=== PATIENT | male | born 2000 | race Caucasian/White ===

== ENCOUNTER 2021-07-04 01:14 | Emergency (ER) | payer OTHER, SELFPAY ==
[2021-07-04 01:15] VITALS: BP 199/121; PULSE 99; RESP 16; TEMP 36.7; O2SAT 100; BMI 34.1
--- NOTE | 2021-07-04 01:23 | CT_ITS ---
STUDY: CT ABDOMEN AND PELVIS WITH CONTRAST REASON FOR EXAM: Male, 21 years old. Left upper quadrant pain. RADIATION DOSAGE (If Supplied By Facility): CTDIvol = ( 15.97 ) mGy, DLP = ( 1170.00 ) mGycm TECHNIQUE: Transaxial images were obtained from the dome of the diaphragm to the symphysis pubis without oral contrast. 100 mL Isovue 370 intravenous contrast was administered. Sagittal and coronal images were reconstructed. Individualized dose optimization techniques were used for this CT. COMPARISON: None. FINDINGS: The visualized lung bases are unremarkable. The visualized portions of the heart are within normal limits. Normal liver. Normal gallbladder and extrahepatic biliary system. The spleen is at the upper limits of normal in size. Normal pancreas. Normal bilateral adrenal glands. Normal right kidney. Normal left kidney. Normal visualized stomach. Normal small intestine. Normal colon. The appendix is visualized and appears normal. Normal abdominal aorta. Normal inferior vena cava. Normal retroperitoneum. No intra-abdominal free air. Normal urinary bladder. Normal visualized prostate gland. Normal abdominal wall. Normal osseous structures. CT/Abdomen/Pelvis W IV Cont ONLY IMPRESSION: Normal enhanced CT of the abdomen and pelvis. Spleen at the upper limits of normal in size. Electronically Signed: David Turner MD at 2:44 EST , Service support ,
--- NOTE | 2021-07-04 01:24 | EDS_ITS ---
HPI HPI - GI History of Present Illness Chief Complaint: Abd Pain Abdominal Pain/Flank Pain Onset: Days (1) Context: Gradual Onset Timing: Continuous Quality: Aching Location: LUQ (radiates into left shoulder when takes deep breath) Current Severity: Moderate Maximum Severity: Moderate Worsened by: - (deep inspiration) Nausea/Vomiting/Emesis GI Symptom: Negative for Nausea and Vomiting Diarrhea/Melena/Hematochezia GI Symptom: Positive for - (Last bowel movement this morning, normal); Negative for Diarrhea, Melena and Hematochezia Associated Symptoms Associated Symptoms: Negative for Dysuria, Frequency, Hematuria and Urgency Narrative Narrative: Patient states he woke up with severe left upper quadrant pain, it was coming on gradually over the past day, he became concerned because the last time he had pain in this area he had imaging that showed an enlarged spleen, which was back in January. He was then tested for mononucleosis and this confirmed that he had a prior infection which he knew about in high school, but no acute infection at that time. He had a subsequent ultrasound a couple months later in March that showed that his spleen had gotten a little smaller. He is scheduled for another ultrasound coming up soon. States he tried sucralfate and Gaviscon today with this discomfort, it did not change anything. He was told that he may have some gastritis when he had this pain once earlier than this past year, however he had a subsequent EGD that was negative. He denies any coughing, chest pain, shortness of breath, diaphoresis, fevers or chills, or nausea, vomiting, diarrhea. He states he did feel like there was a sore lymph node under his chin today Prior similar symptoms: Yes (But not this bad and not worse with deep inspiration in the past) Recent Illness/Hospitalization: No PFSH PFSH Medical History no medical history no medical history Home Medications Al hyd-Mg tr-alg ac-sod bicarb [Gaviscon] tab PO 07/04/21 [History Last Taken Unknown] esomeprazole magnesium [Nexium] 20 mg PO DAILY 07/04/21 [History Last Taken Unknown] sucralfate [Carafate] 1 g PO BID 07/04/21 [History Last Taken Unknown] Allergy/AdvReac Type Severity Reaction Status Date / Time No Known Allergies Allergy Verified 07/04/21 01:25 Surgical History no surgical history no surgical history Social History Smoking Status: Never smoker ROS ROS ED Constitutional Constitutional ED: Denies chills or fever(s) Eyes Eyes: Denies change in vision or diplopia ENT ENT ED: Denies rhinorrhea or sore throat Cardiovascular Cardiovascular: Denies chest pain or palpitations Respiratory/Chest Respiratory/Chest: Denies cough or dyspnea Gastrointestinal Gastrointestinal: Reports as per HPI and abdominal pain; Denies diarrhea, nausea or vomiting Genitourinary Genitourinary ED: Denies dysuria or hematuria Musculoskeletal Musculoskeletal: Denies back pain or neck pain Integumentary Denies abscess or rash Neurologic Neurologic: Denies headache(s), paresthesias or weakness Psychiatric Psychiatric: Denies anxiety or suicidal thoughts EXAM Physical Exam Const Vital Signs: 07/04/21 01:15 07/04/21 02:33 Temperature 98.0 F Temperature Source Temporal Pulse Rate 99 Respiratory Rate 16 Blood Pressure 199/121 H 161/102 H Blood Pressure Mean 147 121 Pulse Ox 100 Oxygen Delivery Method Room Air Positive well nourished and well developed General Appearance ED: well developed and NAD HEENT Reports moist mucous membranes normocephalic and atraumatic Eyes PERRL and EOMs intact bilaterally Neck full ROM, no lymphadenopathy and supple Resp normal respiratory effort and clear to auscultation bilaterally Cardio regular rate, regular rhythm and no murmurs Rate: Negative for tachycardic GI non-distended GI Narrative: Tender in left upper quadrant but it is just lateral to the epigastrium, with deep palpation in the lateral aspect of the left upper quadrant even with deep inspiration, there is no tenderness. Unable to palpate spleen, however patient's body habitus limits the exam. No splinting on deep inspiration. Auscultation: normoactive bowel sounds Palpation: soft Back/Spine no CVA tenderness General Back: other FROM Extremity normal to inspection General Extremety ED: Negative for edema, pulses abnormal or tenderness General Extremity: Negative for edema or pulses abnormal Neuro oriented x3, CN's II-XII intact bilaterally and no sensory deficits noted Sensorium / Orientation: awake and alert Motor Exam: strength 5/5 throughout Psych mental status grossly normal, thought process normal, cooperative, speech normal and activity/motor behavior normal Mood & Affect: anxious Skin no rashes or lesions noted and no wounds MDM MDM MDM Narrative Medical decision making narrative: Patient presenting in the 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 Blood work was obtained, and he was given an IV to flush the IV contrast for the CT scan. Blood work and CT are normal, with the CT showing the spleen at the upper limits of normal in size. Reassured patient, he is starting to feel better and denies offers for Toradol, dicyclomine. He states he was prescribed dicyclomine for this in the past. Certainly sounds like some type of GI pain to me, could be stomach related, could be splenic flexure of the colon, but Kehr sign is nonspecific and he has a PERC score of 0, ruling out pulmonary embolus for now. States he gets this about 3 times a year. Follow-up advised. Lab Data Attestation: I reviewed the patient's lab results. Labs: Laboratory Results - last 24 hr 07/04/21 07/04/21 01:30 01:30 WBC 7.8 RBC 5.31 Hgb 16.1 Hct 46.4 MCV 87.4 MCH 30.3 MCHC 34.7 RDW Std Deviation 36.8 RDW Coeff of Radha 11.5 L Plt Count 174 MPV 10.0 Immature Gran % (Auto) 1.200 H Neut % (Auto) 46.9 L Lymph % (Auto) 40.5 Rooks % (Auto) 8.3 Eos % (Auto) 2.3 Baso % (Auto) 0.8 Absolute Neuts (auto) 3.7 Absolute Lymphs (auto) 3.16 Nucleated RBC % 0 Sodium 143 Potassium 3.8 Chloride 110 H Carbon Dioxide 27.0 Anion Gap 6 BUN 13 Creatinine 1.13 Estim Creat Clear Calc 102.54 Est GFR (MDRD) Af Amer 104 Est GFR (MDRD) Non-Af 86 BUN/Creatinine Ratio 11.5 Glucose 99 Calcium 9.6 Total Bilirubin 0.40 AST 44 H ALT 60 Alkaline Phosphatase 93 Total Protein 7.7 Albumin 4.1 Globulin 3.6 Albumin/Globulin Ratio 1.1 Lipase 85 Radiography Diagnostic Testing: Clinical Impression(s) from Imaging Studies Abdomen/Pelvis CT 07/04/21 01:23 IMPRESSION: Normal enhanced CT of the abdomen and pelvis. Spleen at the upper limits of normal in size. Electronically Signed: David Turner MD at 2:44 EST , Service support , Discharge Plan Triage Chief Complaint: Abd Pain ED Provider: Harvey Stevenson Dx/Rx/DC Orders Clinical Impression: Abdominal pain, LUQ Instructions: Abdominal Pain Prescriptions: No Action sucralfate [Carafate] 1 gram Tablet 1 g PO BID RF: 0 esomeprazole magnesium [Nexium] 20 mg Capsule,Delayed Release(Dr/Ec) 20 mg PO DAILY RF: 0 Gaviscon 80-14.2 mg Tablet,Chewable PO RF: 0 Primary Care Provider: Vasquez Reyes Referrals: Vasquez Reyes MD [Primary Care Provider] - 5-7 Days Disposition Disposition: Home, Self Care
[2021-07-04] MEDS: 0.9% Normal Saline 1,000 ML 999 ML IV (01:37)
[2021-07-04 01:45] LABS: Absolute Lymphocyte Count 3.16 X10^3/uL (0.83-4.51); Absolute Neutrophil Count 3.7 X10^3/uL (2.0-7.7); Basophil# 0.06 X10^3/uL; Basophil% 0.8 % (0-1); Eosinophil# 0.18 X10^3/uL; Eosinophils% 2.3 % (0-5); Hematocrit 46.4 % (40-54); Hemoglobin 16.1 g/dL (13.0-16.5); Lymphocyte # 3.16 X10^3/ul (0.83-4.51); Lymphocyte % 40.5 % (19-41); Mean Corp Hgb Conc 34.7 g/dL (32-36); Mean Corpuscular Hgb 30.3 pg (27.0-32.0); Mean Corpuscular Volume 87.4 fL (80-94); Monocyte# 0.65 X10^3/uL; Monocyte% 8.3 % (0-10); NRBC Flagged by Analyzer 0 % (0-5); Neutrophil # 3.66 X10^3/uL (2.7-7.7); Neutrophil % 46.9 % (47-70); Platelet Count 174 K/mm3 (150-450); RBC Distribution Width CV 11.5 % (11.6-14.6); RBC Distribution Width SD 36.8 fl (35.1-43.9); Red Blood Count 5.31 M/mm3 (4.6-6.2); White Blood Count 7.8 K/mm3 (4.4-11.0)
[2021-07-04 02:13] LABS: ALB/GLOB Ratio 1.1 RATIO (0.9-2.4); AST(SGOT) 44 U/L (15-37); Alanine Aminotransfer ALT/SGPT 60 U/L (16-61); Albumin, Serum 4.1 g/dL (3.2-5.0); Alkaline Phosphatase 93 U/L (45-117); Anion Gap 6 (5-15); BUN 13 mg/dL (7-18); BUN/Creat Ratio 11.5 RATIO (10-20); Calcium,Total 9.6 mg/dL (8.5-10.1); Chloride 110 mmol/L (98-107); Creatinine, Serum 1.13 mg/dL (0.70-1.30); EST Glomerular Filtration Rate 86 mL/min (>60); Est Glom Filt Rate - Afr Amer 104 mL/min (>60); Estimated Creatinine Clearance 102.54 ml/min; Globulin 3.6 g/dL (2.2-4.2); Glucose 99 mg/dL (74-106); Lipase 85 U/L (73-393); Potassium 3.8 mmol/L (3.5-5.1); Protein, Total 7.7 g/dL (6.4-8.2); Sodium Level 143 mmol/L (136-145)
[2021-07-04 02:33] VITALS: BP 161/102
[2021-07-04 03:07] VITALS: RESP 16
== END 2021-07-04 03:07 | disposition home or self-care (01) ==
PROVIDERS: Emergency Provider Emergency Medicine; PCP Family Medicine
DX: R10.12 Left upper quadrant pain (principal); Z79.899 Other long term (current) drug therapy
CPT/HCPCS: 74177; 80053; 83690; 85025; 96360; 99283; J7030; Q9967; A4216

== ENCOUNTER 2023-11-18 22:51 | Inpatient (IN) | payer OTHER, SELFPAY ==
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
[2023-11-18 23:03] VITALS: BP 177/94; PULSE 114; RESP 18; TEMP 35.9
--- NOTE | 2023-11-18 23:24 | EX.ED.VIS.PS ---
HPI HPI - Psych History of Present Illness Chief Complaint: Suicidal Informant: patient Limited: intoxicated and uncooperative Onset/Context/Timing Onset: Today Timing: Continuous Associated Symptoms Associated Symptoms - Psych: Positive for Depressed and Suicidal Thoughts; Negative for Paranoia, Visual Hallucinations or Auditory Hallucinations Specific plan (suicidal thought): Shooting self with a gun Narrative Narrative: Patient presents with depression and suicidal ideations that occurred tonight. Patient states that he had been drinking. Patient states he does not want to live anymore. Patient states he wants to shoot himself with a gun. Patient denies any visual or auditory hallucinations. Patient denies any paranoid ideations. Patient does not provide any further information and refused to answer any other questions. PFSH [facility] Medical History (Updated 11/19/23 @ 06:[address] Sea Chong, ) Depression Hypertension Home Medications Al hyd-Mg tr-alg ac-sod bicarb 80 mg-14.2 mg chewable tablet (Gaviscon) tab PO 07/04/21 [History Last Taken Unknown] esomeprazole magnesium 20 mg capsule,delayed release (Nexium) 20 mg PO DAILY 07/04/21 [History Last Taken Unknown] sucralfate 1 gram tablet (Carafate) 1 g PO BID 07/04/21 [History Last Taken Unknown] amlodipine 5 mg tablet 5 mg PO DAILY PRN htn 11/19/23 [History Last Taken Unknown] fluoxetine 40 mg capsule 60 mg PO DAILY 11/19/23 [History Last Taken Unknown] Allergy/AdvReac Type Severity Reaction Status Date / Time No Known Allergies Allergy Verified 11/19/23 00:01 Surgical History (Updated 11/19/23 @ 00:36 by Missy Oviedo) Hx of tonsillectomy Social History (System 07/07/21 @ 15:03 by Yue Dumont) Smoking Status: Never smoker ROS ROS ED Review of Systems ROS Unobtainable: other Details: Patient is uncooperative and refuses to answer questions EXAM Physical Exam Const Vital Signs: 11/18/23 23:51 11/18/23 23:03 11/19/23 01:00 Temperature 96.6 F L 96.6 F L Temperature Source Temporal Temporal Pulse Rate 114 H 114 H 105 H Respiratory Rate 18 18 16 Blood Pressure 177/94 H 177/94 H 130/78 H Blood Pressure Mean 121 121 95 Pulse Ox Oxygen Delivery Method Nasal Cannula Oxygen Flow Rate (L/min) 2 11/19/23 02:00 11/19/23 00:55 11/19/23 06:00 Temperature Temperature Source Pulse Rate 119 H 86 Respiratory Rate 159 H Blood Pressure 143/63 H 122/82 H Blood Pressure Mean 89 95 Pulse Ox 93 84 98 Oxygen Delivery Method Nasal Cannula Room Air Room Air Oxygen Flow Rate (L/min) 2 Positive well nourished and well developed General Appearance ED: well developed and NAD HEENT Reports moist mucous membranes Neck supple and no JVD Resp normal respiratory effort and clear to auscultation bilaterally GI non-distended Palpation: soft and tender RUQ; Negative for guarding Extremity normal to inspection General Extremety ED: Negative for edema or tenderness General Extremity: Negative for edema Neuro oriented x3, CN's II-XII intact bilaterally and no sensory deficits noted Marcel Coma Scale: document GCS findings Spontaneous Obeys Commands Oriented 15 Sensorium / Orientation: alert Motor Exam: strength 5/5 throughout Psych Attitude: agitated, aggressive and hostile Mood & Affect: depressed and labile affect Thought Content: suicidality, No homicidality, No delusion(s) and No hallucination(s) MDM MDM MDM Narrative Medical decision making narrative: Medical screening labs will be obtained. CBC will be obtained to assess for leukocytosis and anemia. Basic metabolic profile will be obtained to assess for electrolyte abnormality and renal function. Urine tox screen will be obtained to assess for substance abuse. Serum alcohol level will be obtained to assess for alcohol intoxication. Lab Data Attestation: I reviewed the patient's lab results. Lab results narrative: CBC was reviewed and was within normal limits. Basic metabolic profile was reviewed and was within normal limits. Urine tox screen was reviewed and was negative. Serum alcohol level was reviewed and was elevated at 275. Labs: Laboratory Results - last 24 hr 11/19/23 11/19/23 11/19/23 00:15 00:20 01:23 WBC 8.6 RBC 5.16 Hgb 16.2 Hct 46.3 MCV 89.7 MCH 31.4 MCHC 35.0 RDW Std Deviation 39.0 RDW Coeff of Radha 11.9 Plt Count 234 MPV 9.9 Immature Gran % (Auto) 1.200 H Neut % (Auto) 39.1 L Lymph % (Auto) 49.[address] [place] [place] % (Auto) 6.7 Eos % (Auto) 2.1 Baso % (Auto) 1.5 H Absolute Neuts (auto) 3.4 Absolute Lymphs (auto) 4.23 Nucleated RBC % 0 Sodium 143 Potassium 3.9 Chloride 111 H Carbon Dioxide 21.0 Anion Gap 11 BUN 12 Creatinine 1.02 Estim Creat Clear Calc 138.40 Est GFR (MDRD) Af Amer 115 Est GFR (MDRD) Non-Af 95 BUN/Creatinine Ratio 11.8 Glucose 110 H Calcium 8.7 Urine Opiates Screen NEGATIVE Urine Methadone Screen NEGATIVE Ur Barbiturates Screen NEGATIVE Ur Phencyclidine Scrn NEGATIVE Ur Amphetamines Screen NEGATIVE MDMA (Ecstasy) Screen NEGATIVE U Benzodiazepines Scrn NEGATIVE Urine Cocaine Screen NEGATIVE U Cannabinoids Screen NEGATIVE Ur Drug Screen Comment Ethyl Alcohol Cancelled 275.0 Treatment and Re-Evaluation Narrative: Patient was given a dose of Ativan here. Suicide precautions were maintained. Patient was placed in restraints initially. Patient became more cooperative and restraints were able to be discontinued. Alcohol level will need to be repeated prior to crisis evaluation. Care of the patient will be turned over the oncoming physician pending repeat alcohol level and crisis evaluation. Discharge Plan Triage Chief Complaint: Suicidal ED Provider: Sea Chong Dx/Rx/DC Orders Clinical Impression: Suicidal ideation, Alcohol intoxication, Depression Prescriptions: No Action sucralfate [Carafate] 1 gram Tablet 1 g PO BID esomeprazole magnesium [Nexium] 20 mg Capsule,Delayed Release(Dr/Ec) 20 mg PO DAILY Gaviscon 80-14.2 mg Tablet,Chewable PO amlodipine 5 mg tablet 5 mg PO DAILY PRN (Reason: htn) fluoxetine 40 mg capsule 60 mg PO DAILY Primary Care Provider: Vasquez Reyes Referrals: Vasquez Reyes MD [Primary Care Provider] -
[2023-11-18] MEDS: LORazepam 2 MG/ML Syringe IM (23:31)
[2023-11-18 23:51] VITALS: BP 177/94; PULSE 114; RESP 18; TEMP 35.9; BMI 36.8
--- NOTE | 2023-11-18 23:53 | ED.RN ---
This RN attempted to obtain vital signs from pt. Pt refusing to relax his arm to allow for bp to be obtained. This RN attempted to place temporary pulse oximeter on pt to obtain HR and O2. Pt threw pulse oximeter. Sticker pulse oximeter attempted to be placed on finger, ear and toe without success, pt began spitting at this RN and an officer in the room. Attempts for vital signs abandoned at this time.
[2023-11-19] VITALS (9 sets, daily range): BP systolic 122–158; BP diastolic 63–103; PULSE 76–119; RESP 16–159; TEMP 36.4–37.2; O2SAT 84–99; BMI 36.8
[2023-11-19 00:43] LABS: Amphetamine Urine VISTA NEGATIVE (<1000 ng/mL); Barbiturate Urine VISTA NEGATIVE (< 200 ng/mL); Benzodiazepine Urine VISTA NEGATIVE (< 200 ng/mL); Cocaine Urine VISTA NEGATIVE (< 300 ng/mL); Ecstacy Urine VISTA NEGATIVE (< 500 ng/mL); Methadone Urine VISTA NEGATIVE (< 300 ng/mL); PCP Urine VISTA NEGATIVE (< 25 ng/mL); THC Urine VISTA NEGATIVE (< 50 ng/mL); Vista UDS pH Range 5
[2023-11-19 00:50] LABS: Absolute Lymphocyte Count 4.23 X10^3/uL (0.83-4.51); Absolute Neutrophil Count 3.4 X10^3/uL (2.0-7.7); Basophil# 0.13 X10^3/uL; Basophil% 1.5 % (0-1); Eosinophil# 0.18 X10^3/uL; Eosinophils% 2.1 % (0-5); Hematocrit 46.3 % (40-54); Hemoglobin 16.2 g/dL (13.0-16.5); Lymphocyte # 4.23 X10^3/ul (0.83-4.51); Lymphocyte % 49.4 % (19-41); Mean Corpuscular Hgb 31.4 pg (27.0-32.0); Mean Corpuscular Volume 89.7 fL (80-94); Mean Platelet Vol. 9.9 fl (6.2-12.0); Monocyte# 0.57 X10^3/uL; Monocyte% 6.7 % (0-10); NRBC Flagged by Analyzer 0 % (0-5); Neutrophil # 3.35 X10^3/uL (2.7-7.7); Neutrophil % 39.1 % (47-70); Platelet Count 234 K/mm3 (150-450); RBC Distribution Width CV 11.9 % (11.6-14.6); Red Blood Count 5.16 M/mm3 (4.6-6.2); White Blood Count 8.6 K/mm3 (4.4-11.0)
[2023-11-19 01:03] LABS: Anion Gap 11 (5-15); BUN 12 mg/dL (7-18); BUN/Creat Ratio 11.8 RATIO (10-20); Calcium,Total 8.7 mg/dL (8.5-10.1); Chloride 111 mmol/L (98-107); Creatinine, Serum 1.02 mg/dL (0.70-1.30); EST Glomerular Filtration Rate 95 mL/min (>60); Est Glom Filt Rate - Afr Amer 115 mL/min (>60); Glucose 110 mg/dL (74-106); Potassium 3.9 mmol/L (3.5-5.1); Sodium Level 143 mmol/L (136-145)
--- NOTE | 2023-11-19 01:47 | ED.RN ---
Patient in triage trying to leave. Multiple attempts to de-escalate. Pt swinging at staff. Pt was able to be directed to room, but then would try to run. When arrived to room, PD present, patient swinging and kicking at staff. Pt spit on nurse and PD officer.
[2023-11-19] MEDS: Amox/Clavulanate 875 MG Tablet PO ×2 (09:14→22:25)
--- NOTE | 2023-11-19 13:35 | PCM.HP.STD ---
HPI - General General Date of Admission: 11/19/23 Date of Service: 11/19/23 Chief Complaint: EtOH detoxification. 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 Patient initially was reportedly not willing to answer any questions and initial lab workup notable for elevated alcohol level otherwise not marked appearing. Patient remained in the ED on suicide precautions with initially restraints placed secondary to severe agitation however these were eventually removed. Alcohol repeat level was obtained and noted to be 81. Workup in the ED included T96.6, heart rate 114, BP 177/94, respiratory rate 18 initially 84% on room air however this was upon initial presentation on 11/18/2023 with most recent vital sign reassessment heart rate 96, BP 139/66, respiratory rate 16, 99% on room air, CBC with WBC 8.6, human 16.2, platelet 234 with increased immature granulocytes, BMP with chloride 111, glucose 110 otherwise unremarkable, UDS negative, alcohol initial upon presentation to 75 with repeat 11/19/2023 at 10:29 AM alcohol 81. 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 When patient clinically became non-intoxicated he did report to social work/crisis that he was nonsuicidal and this had been purely his intoxication. was present for these discussions and noted to her concerns given his profession and evident anxiety depression when she does admit that he may truly have these underlying suicidal ideations. Discussed these very honestly with the patient and his and he is amenable to her removing guns from their home to be cautious. Patient does report eagerness to have assistance with alcohol abuse. He denies any current alcohol withdrawal. Patient does report he was recently diagnosed with a sinus infection and has been on Augmentin. Patient did report he did utilize his hand and punched a wall the day prior when he was intoxicated. He notes still being able move his hand but does have some swelling and some bruising to the dorsal region. In the ED patient administered ativan 2 mg IM x 1 as well as Augmentin 875 mg p.o. x 1. [facility] Medical History Alcohol abuse Anxiety and depression Chewing tobacco use GERD (gastroesophageal reflux disease) Hypertension Obesity OCD (obsessive compulsive disorder) Home Medications amlodipine 5 mg tablet 5 mg PO DAILY PRN htn 11/19/23 [History Last Taken 11/13/23] fluoxetine 40 mg capsule 60 mg PO DAILY 11/19/23 [History Last Taken 11/18/23] Allergy/AdvReac Type Severity Reaction Status Date / Time No Known Allergies Allergy Verified 11/19/23 00:01 Family History Father Diabetes CAD (coronary artery disease) Hypertension Heart disease Father No problems noted. Mother Afib Hypothyroid Surgical History Hx of tonsillectomy Social History (Updated 11/19/23 @ 20:[address] Tenisha Swift MD) adopted: No household members: spouse and children housing: house number of children: 2 current occupational status: employed current occupation: Nurse current occupational exposures/hazards: No pets and animals: No history of recent travel: No Smoking Status: Never smoker Smokeless tobacco user: chewing tobacco alcohol intake: current alcohol intake frequency: 3 or more drinks per day details: Binge EtOH abuse, 15 beer/hard seltzer drinks typically in 1 setting. substance use type: does not use ROS ROS Narrative Admission Review of Systems: CONSTITUTIONAL: No weight loss, fever, chills, + weakness or fatigue. HEENT: + Recent sinus infection with congestion, rhinorrhea, sore throat, postnasal drip with cough. Eyes: No visual loss, blurred vision, double vision or yellow sclerae. Ears, Nose, Throat: No hearing loss, sneezing. SKIN: No rash or itching, lesions, wounds except + occasional very staged ecchymoses. CARDIOVASCULAR: No chest pain, chest pressure or chest discomfort, palpitations, edema, orthopnea, syncopal events. RESPIRATORY: + Postnasal drip associated cough with productive sputum occasionally. No shortness of breath, wheezing, hemoptysis. GASTROINTESTINAL: No anorexia, nausea, vomiting or diarrhea, abdominal pain, melena, BRBPR. GENITOURINARY: No dysuria, frequency, urgency or retention. NEUROLOGICAL: No headache, dizziness, syncope, paralysis, ataxia, numbness or tingling in the extremities, focal weakness, change in bowel or bladder control, seizure. MUSCULOSKELETAL: + muscle, back pain, joint pain or stiffness. HEMATOLOGIC: No anemia, bleeding or bruising. LYMPHATICS: No enlarged nodes. No history of splenectomy. PSYCHIATRIC: + History of anxiety and depression, OCD, suicidal ideation. ENDOCRINOLOGIC: No reports of sweating, cold or heat intolerance. No polyuria or polydipsia. ALLERGIES: No history of asthma, hives, eczema or rhinitis. Vital Signs Vital Signs Vital Signs: 11/18/23 23:51 11/18/23 23:03 11/19/23 01:00 Temperature 96.6 F L 96.6 F L Temperature Source Temporal Temporal Pulse Rate 114 H 114 H 105 H Respiratory Rate 18 18 16 Blood Pressure 177/94 H 177/94 H 130/78 H Blood Pressure Mean 121 121 95 Pulse Ox Oxygen Delivery Method Nasal Cannula Oxygen Flow Rate (L/min) 2 11/19/23 02:00 11/19/23 00:55 11/19/23 06:00 Temperature Temperature Source Pulse Rate 119 H 86 Respiratory Rate 159 H Blood Pressure 143/63 H 122/82 H Blood Pressure Mean 89 95 Pulse Ox 93 84 98 Oxygen Delivery Method Nasal Cannula Room Air Room Air Oxygen Flow Rate (L/min) 2 11/19/23 10:00 Temperature Temperature Source Pulse Rate 96 Respiratory Rate 16 Blood Pressure 139/66 H Blood Pressure Mean 90 Pulse Ox 99 Oxygen Delivery Method Room Air Oxygen Flow Rate (L/min) Weight Weight: 249 lb 1.957 oz Body Mass Index (BMI) 36.8 Physical Exam Narrative Physical Examination: General: Awake, alert, oriented x 3, appropriate, interactive, lengthy discussion about anxiety depression and suicidal ideation as well as alcohol abuse, does have guns in the home and following discussions these will be removed to an alternate location to which she will not have any access, he denies any alcohol withdrawal symptoms currently. Skin: Normal color, normal turgor, no icterus, no cyanosis except occasional staged ecchymoses, including to the right hand which he punched a wall the day prior. HEENT: AT/NC, EOMI, PERRLA, dry MM, no carotid bruits or JVD noted. Lungs: CTA bilaterally, moderate effort, mild decrease BL bases, no rales, ronchi or wheezing. Heart: Mildly tachycardic with regular rhythm; no gallop, rub audible. Abdomen: Soft, obese, NTTP, ND, hyperactive BS, no appreciated HSM. Extremities: No cyanosis, no clubbing, right hand mild edema, see skin. Neurological: Patient awake, alert, oriented as noted, cognitive function intact; pupils equally reactive to light and accommodation, cranial nerves grossly normal, moving all 4 extremities, no focal deficits, strength mildly globally creased. Psychiatric: Affect appears mildly flat, does appear somewhat tearful during discussions but no overt tears, admits to underlying anxiety and depression, admits to the recent suicidal comments which she then denied once he was less intoxicated but following lengthy discussions do have concerns still but currently while being treated for alcohol withdrawal contracts for safety. Results Lab / Micro Data 11/19/23 00:20 11/19/23 00:20 Labs: Laboratory Results - last 24 hr 11/19/23 00:15: Urine Opiates Screen NEGATIVE, Urine Methadone Screen NEGATIVE, Ur Barbiturates Screen NEGATIVE, Ur Phencyclidine Scrn NEGATIVE, Ur Amphetamines Screen NEGATIVE, MDMA (Ecstasy) Screen NEGATIVE, U Benzodiazepines Scrn NEGATIVE, Urine Cocaine Screen NEGATIVE, U Cannabinoids Screen NEGATIVE, Ur Drug Screen Comment 11/19/23 00:20: WBC 8.6, RBC 5.16, Hgb 16.2, Hct 46.3, MCV 89.7, MCH 31.4, MCHC 35.0, RDW Std Deviation 39.0, RDW Coeff of Radha 11.9, Plt Count 234, MPV 9.9, Immature Gran % (Auto) 1.200 H, Neut % (Auto) 39.1 L, Lymph % (Auto) 49.4 H, Obion % (Auto) 6.7, Eos % (Auto) 2.1, Baso % (Auto) 1.5 H, Absolute Neuts (auto) 3.4, Absolute Lymphs (auto) 4.23, Nucleated RBC % 0, Sodium 143, Potassium 3.9, Chloride 111 H, Carbon Dioxide 21.0, Anion Gap 11, BUN 12, Creatinine 1.02, Estim Creat Clear Calc 138.40, Est GFR (MDRD) Af Amer 115, Est GFR (MDRD) Non-Af 95, BUN/Creatinine Ratio 11.8, Glucose 110 H, Calcium 8.7, Ethyl Alcohol Cancelled 11/19/23 01:23: Ethyl Alcohol 275.0 11/19/23 10:29: Ethyl Alcohol 81.0 Assessment & Plan Assessment/Plan (1) Alcohol intoxication: PLAN: Plan 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 #1. Acute Abuse with Impending EtOH Withdrawal: Will admit to MS, will initiate and continue on protocol with taper course of Phenobarbital, as needed gabapentin, Catapres, Bentyl, Vistaril, IV fluids, IV antiemetics, Tylenol as needed for pain. Will consult Case management for assistance for transition to next level of rehabilitation care. Mag, phos pending. Maintain on CIWA protocol concurrently. Will obtain plain film of the R hand given possibly injury while intoxicated. #2. Anxiety and depression with suicidal ideations: Given severity of presentation with significant plan and known history of anxiety and depression will maintain noted to patient and significant concerns with recommendation for aggressive outpatient counseling/therapy and ongoing medication treatment with consideration of adjunctive therapy. Patient was evaluated by crisis and social work and felt appropriate to be off suicide precautions. Will remain off precautions per discussion with patient and with contracted safety but did discuss and he is amenable as well as to remove guns from their home. Will continue social work/case management consultation given these concerns. #3. Recent acute sinusitis: Will continue patient oral Augmentin regimen, PRN ocean spray, PRN cough regimen, encourage nasal irrigation with January pot system at home and potentially Flonase if necessary. #4. Hypertension: Continue home regimen including amlodipine, PRN hydralazine. #5. Obesity: Weight loss and lifestyle changes encouraged. #6. GERD: Will continue patient on PPI. #7. Chew tobacco use: Uses pouches or chew, encourage cessation, nicotine replacement if requested. #8. DVT prophylaxis: Low risk. Charges/Coding Visit Charges Inpatient E&M: 94852 Init Hosp L2
--- NOTE | 2023-11-19 14:42 | RAD_ITS ---
STUDY: X-RAY - RIGHT HAND REASON FOR EXAM: Male, 23 years old. Trauma TECHNIQUE: 3 view(s) of the hand. COMPARISON: None. FINDINGS: There is no evidence of fracture or dislocation. There are no significant degenerative changes. There are no radiodense foreign bodies. RAD/Hand Min 3 Views IMPRESSION: No fracture or dislocation. Electronically Signed: London Roe MD at 15:12 EDT ,
[2023-11-19 15:10] LABS: AST(SGOT) 57 U/L (15-37); Alanine Aminotransfer ALT/SGPT 75 U/L (16-61); Albumin, Serum 4.2 g/dL (3.2-5.0); Alkaline Phosphatase 100 U/L (45-117); Bilirubin, Direct 0.11 mg/dL (0.00-0.30); Globulin 3.6 g/dL (2.2-4.2); Magnesium 2.2 mg/dL (1.6-2.6); Phosphorus 2.7 mg/dL (2.5-4.9); Protein, Total 7.8 g/dL (6.4-8.2)
[2023-11-19] MEDS: amLODIPine 5 MG Tablet PO (18:53)
[2023-11-19] MEDS: Lactated Ringers 1,000 ML 125 ML IV (18:53)
[2023-11-19] MEDS: Phenobarbital 32.4 MG Tablet 64.8 MG PO ×2 (18:53→22:24)
[2023-11-19] MEDS: Gabapentin 300 MG Capsule PO (21:27)
[2023-11-19] MEDS: Ibuprofen 600 MG Tablet PO (22:29)
[2023-11-20 03:00] VITALS: BP 135/85; PULSE 83; RESP 16; TEMP 36.6; O2SAT 99
[2023-11-20] MEDS: Phenobarbital 32.4 MG Tablet 64.8 MG PO ×6 (03:00→22:32)
[2023-11-20 08:34] VITALS: BP 130/81; PULSE 71; RESP 18; TEMP 36.6; O2SAT 99
[2023-11-20] MEDS: Thiamine Hydrochloride 100 MG Tablet PO (08:37)
[2023-11-20] MEDS: Multivitamins,Ther W-Minerals Tablet 1 TABLET PO (08:37)
[2023-11-20] MEDS: Folic Acid 1 MG Tablet PO (08:37)
[2023-11-20] MEDS: Amox/Clavulanate 875 MG Tablet PO ×2 (11:09→22:32)
[2023-11-20 11:10] VITALS: O2SAT 98
[2023-11-20] MEDS: amLODIPine 5 MG Tablet PO (11:10)
[2023-11-20] MEDS: FLUoxetine 20 MG Capsule 60 MG PO (11:10)
[2023-11-20] MEDS: Pantoprazole Sodium 20 MG Tablet PO (11:10)
--- NOTE | 2023-11-20 11:22 | NURSING ---
talked with unit manager rn as pt states concerned that while he was in ER, his behavior has given him charges pressed against. she will reach out to manager unit.
[2023-11-20] MEDS: Dicyclomine 10 MG Capsule 20 MG PO ×2 (11:30→22:32)
--- NOTE | 2023-11-20 11:31 | ADDICTION ---
This feature writer met with PT to conduct ASAM, MSE, AUDIT assessments and to plan for d/c. PT A+Ox4 and participated actively. All assessments completed. PT plans to f/u with outpatient AOD treatment. TW completed Vivitrol Assessment. He meets criteria and would like the shot. Pt reports that he will follow up with [facility] for tx and the ongoing shot. He reports that he does not need transportation post d/c from [facility].
[2023-11-20] MEDS: Ibuprofen 600 MG Tablet PO ×2 (14:21→22:31)
[2023-11-20 14:23] VITALS: BP 153/89; PULSE 83; RESP 18; TEMP 36.8; O2SAT 98
[2023-11-20] MEDS: Gabapentin 300 MG Capsule PO (14:37)
--- NOTE | 2023-11-20 15:37 | CHAPLAIN ---
Type of Pastoral Visit ___ Initial Visit ___ Follow-up Visit ___ On-call Visit ___ General Patient Visit ___ Spiritual Assessment ___ Family Conference ___ Bereavement ___ Rapid Response ___ Code Blue ___ Other (describe below) Pastoral Care Referral From ___ Patient ___ Family ___ Nurse ___ Physician ___ Assistant Sales Manager ___ Blunger ___ Other (describe below) Sacrament/Intervention ___ Active listening ___ Anointing ___ Scientology ___ Bereavement ___ Communion ___ [place] exploration ___ ___ Life review ___ Prayer ___ Reconciliation ___ Sacrament of Sick ___ Supportive presence ___ Wedding ___ Other (describe below) Pastoral Comments two attempts made to visit but patient has staff members attending to his needs at the time
--- NOTE | 2023-11-20 19:28 | PCM.PN.HOSP ---
Reason for Visit Reason for Visit: Diagnoses Alcohol use, unspecified with intoxication, unspecified (11/19/23) Subjective Subjective Patient was seen and examined today, he has some vague mid abdominal pain, his liver enzymes were slightly elevated when he was admitted. Patient has no complaints of any tremor or nervousness at this time, patient feels that he will most likely do an outpatient detox program when he is discharged from the hospital. Objective Data Objective Data Vital Signs: Vital Signs Temp Pulse Resp BP Pulse Ox O2 Del Method O2 Flow Rate 98.3 F 83 18 153/89 H 98 Room Air 2 11/20/23 14:23 11/20/23 14:23 11/20/23 14:23 11/20/23 14:23 11/20/23 14:23 11/20/23 14:23 11/19/23 02:00 Oxygen Flow Rate (L/min) 2 Oxygen Delivery Method Room Air Weight: 113 kg Body Mass Index (BMI) 36.8 Intake & Output: Intake and Output for Last 24 Hours 11/18/23 11/19/23 11/20/23 23:59 23:59 23:59 Intake Total 439.58 / 439.58 1860.42 / 1860.42 Balance 439.58 / 439.58 1860.42 / 1860.42 Lab / Micro Data 11/19/23 00:20 11/19/23 00:20 Physical Exam Const alert, oriented x3, no apparent distress and healthy appearing General Appearance: cooperative, well kempt and well developed Orientation / Consciousness: awake, oriented to person, oriented to place and oriented to time HEENT normocephalic, head/scalp atraumatic and moist oral mucous membranes Eyes PERRL, EOMs intact bilaterally and conjunctivae normal Neck supple, no JVD, thyroid normal and no carotid bruits General: trachea midline Resp normal respiratory effort and clear to auscultation bilaterally Auscultation: Negative for rales, rhonchi or wheezes Cardio regular rate, regular rhythm, S1 normal heart sound, S2 normal heart sound, no murmurs, no rub and no gallops GI normal to inspection, nondistended, normoactive bowel sounds, soft to palpation, non-tender and non-distended Extremity no clubbing, cyanosis or edema Skin no rashes or lesions noted General Skin Exam: no breakdown Neuro oriented x3, CN's II-XII intact bilaterally, no focal motor deficits and no sensory deficits noted Sensorium / Orientation: awake and alert Speech: speech normal Psych affect normal Assessment & Plan Assessment/Plan (1) Depression: PLAN: Plan 1. Acute alcohol withdrawal-continue medications as ordered for alcohol withdrawal, addiction clinical social work aide will develop a plan for the patient at the time of discharge from the hospital #2 chronic depression-patient is on Prozac #3 elevated liver enzymes-probably mild alcoholic hepatitis, repeat liver panel tomorrow #4 abdominal discomfort-etiology unclear, this will be monitored, I do not feel the patient needs a lipase performed at this time #5 essential hypertension-patient will remain on his present medication Total clinical time spent by myself addressing the patient's medical issues, reviewing all of his data, and collaborating with patient's care team: 35 minutes Charges/Coding Visit Charges Inpatient E&M: 40371 Subs Hosp L2
[2023-11-20 20:51] VITALS: BP 133/86; PULSE 80; RESP 18; TEMP 36.8; O2SAT 98
[2023-11-21 01:58] VITALS: BP 153/72; PULSE 67; RESP 18; TEMP 36.4; O2SAT 98
[2023-11-21] MEDS: Phenobarbital 32.4 MG Tablet 64.8 MG PO ×2 (02:03→06:12)
[2023-11-21 08:00] VITALS: BP 132/70; PULSE 84; RESP 18; TEMP 36.9; O2SAT 98
[2023-11-21 08:32] LABS: AST(SGOT) 68 U/L (15-37); Alanine Aminotransfer ALT/SGPT 84 U/L (16-61); Albumin, Serum 3.6 g/dL (3.2-5.0); Alkaline Phosphatase 93 U/L (45-117); Bilirubin, Direct 0.15 mg/dL (0.00-0.30); Protein, Total 6.6 g/dL (6.4-8.2)
[2023-11-21] MEDS: Thiamine Hydrochloride 100 MG Tablet PO (08:36)
[2023-11-21] MEDS: Folic Acid 1 MG Tablet PO (08:36)
[2023-11-21] MEDS: Pantoprazole Sodium 20 MG Tablet PO (08:36)
[2023-11-21] MEDS: Amox/Clavulanate 875 MG Tablet PO (08:36)
[2023-11-21] MEDS: FLUoxetine 20 MG Capsule 60 MG PO (08:36)
[2023-11-21] MEDS: amLODIPine 5 MG Tablet PO (08:37)
[2023-11-21] MEDS: Multivitamins,Ther W-Minerals Tablet 1 TABLET PO (08:37)
--- NOTE | 2023-11-21 13:27 | CHAPLAIN ---
Type of Pastoral Visit _x__ Initial Visit ___ Follow-up Visit ___ On-call Visit ___ General Patient Visit ___ Spiritual Assessment ___ Family Conference ___ Bereavement ___ Rapid Response ___ Code Blue ___ Other (describe below) Pastoral Care Referral From _x__ Patient ___ Family ___ Nurse ___ Physician ___ Tree Driller ___ Facilities Engineer ___ Other (describe below) Sacrament/Intervention _x__ Active listening ___ Anointing ___ Alevism ___ Bereavement ___ Communion _x__ [place] exploration ___ _x__ Life review _x__ Prayer ___ Reconciliation ___ Sacrament of Sick _x__ Supportive presence ___ Wedding ___ Other (describe below) Pastoral Comments patient is very welcoming and asks if this physical chemistry professor knows his situation; pt admits to embarrassment and shame about his behavior as I am normally a empathic individual and love people; pt is a professional, , 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
--- NOTE | 2023-11-21 14:08 | DCINST_ITS ---
Discharge Instructions Diet Discharge Diet: No restrictions Activity Discharge Activity: Return to Normal Activity Weight Bearing Status: Full weight bearing Follow Up Care Test Results: Test results from this visit will be discussed in further detail at your follow- up appointment, if applicable. Discharge Plan Admission Admit Date/Time: 11/19/23 13:44 Primary Reason for Your Visit: Alcohol withdrawal, alcohol detox Attending Provider: Vasquez Moyer Primary Care Provider: Vasquez Reyes Consulting Providers: Tenisha Swift Instructions Additional Instructions / Restrictions: Finish your outpatient course of antibiotics for sinusitis if you have not f inished them Follow-up with 180 as directed Discharge Orders/Prescriptions Prescriptions: Continued amlodipine 5 mg tablet 5 mg PO DAILY PRN (Reason: htn) Patient Comments: pt takes as needed, should be scheduled. fluoxetine 40 mg capsule 60 mg PO DAILY Referrals / Follow Up: Vasquez Reyes MD [Primary Care Provider] - Disposition Disposition (needs filled in before D/C Order can be placed): Home, Self Care
[2023-11-21] MEDS: Naltrexone Microspheres 380 MG SYRINGE IM (14:12)
[2023-11-21] MEDS: Vivitrol Administration Needles 1 EACH MC (14:13)
[2023-11-21] MEDS: Vivitrol ID Card 1 EACH MC (14:13)
--- NOTE | 2023-11-21 14:13 | PCM.DC.SUM ---
Providers Date of Admission: 11/19/23 Date of Discharge: 11/21/23 Primary Care Physician: Dr. Vasquez Reyes MD Reason For Visit: ETOH WITHDRAWAL Diagnosis Discharge Diagnosis (1) Depression: Status: Acute Code(s): F32.A - Depression, unspecified Plan 1. Acute alcohol withdrawal-continue medications as ordered for alcohol withdrawal, addiction public health social worker will develop a plan for the patient at the time of discharge from the hospital #2 chronic depression-patient is on Prozac #3 elevated liver enzymes-probably mild alcoholic hepatitis, repeat liver panel tomorrow #4 abdominal discomfort-etiology unclear, this will be monitored, I do not feel the patient needs a lipase performed at this time #5 essential hypertension-patient will remain on his present medication Total clinical time spent by myself addressing the patient's medical issues, reviewing all of his data, and collaborating with patient's care team: 35 minutes Medications at Discharge Home Medications amlodipine 5 mg tablet 5 mg PO DAILY PRN htn 11/19/23 fluoxetine 40 mg capsule 60 mg PO DAILY 11/19/23 Hospital Course Operations None Procedures None Summary of Care Provided Minutes Spent on Discharge: 30 Hospital Course: This 23-year-old white male was seen in the emergency room at [facility] requesting detox services from alcohol. Patient was admitted to [place] [address] and medications were started using the alcohol withdrawal template. Patient was seen by addiction public health social worker, arrangements were made for outpatient follow-up for the patient, patient had no severe symptoms of alcohol withdrawal during his hospitalization. On 11/21/2023, patient was seen and examined: On examination he appeared in good health and spirits. Vital signs as documented. Skin warm and dry and without overt rashes. Neck without JVD, neck was supple, trachea midline, thyroid was normal. Lungs clear bilaterally, normal air movement was noted. Heart exam notable for regular rhythm, normal sounds and absence of murmurs, rubs or gallops. Abdomen unremarkable and without evidence of organomegaly, masses, or abdominal aortic enlargement. Bowel sounds are present, abdomen is not distended. Extremities nonedematous, no cyanosis was noted, no clubbing was noted. Neuro: Cranial nerves II through XII are grossly intact, no focal motor deficits were noted, sensation to light touch and pinprick intact, motor exam 5/5 throughout. Psych: Patient is alert and oriented x3, he does not appear anxious or depressed, he does not appear agitated. Patient appears stable for discharge on 11/21/2023. Weight / BMI Weight Weight: 113 kg Body Mass Index (BMI) 36.8 ABG / Lab / Microbiology Data 11/19/23 00:20 11/19/23 00:20 Laboratory: Laboratory Results - last 24 hr 11/21/23 07:22: Total Bilirubin 0.70, Direct Bilirubin 0.15, AST 68 H, ALT 84 H, Alkaline Phosphatase 93, Total Protein 6.6, Albumin 3.6, Globulin 3.0 D/C Instructions Discharge Diet: No restrictions Weight Bearing Status: Full weight bearing Meaningful Use Info Meaningful Use Meaningful Use Diagnoses (Choose all that apply): None applicable Ischemic Stroke Statin Dosing Therapy Reference: STATIN DOSE THERAPY REFERENCE: * Patients > 75 years receive moderate or high dose statin therapy. * Patients 75 years or YOUNGER should receive HIGH intensity statin dose unless contraindicated. You will be required to document reason for non-treatment if statin daily dose does not meet guidelines. HIGH DOSE STATIN THERAPY DAILY Atorvastatin > than or = to 40 mg Rosuvastatin > than or = to 20 mg Amlodipine + Atorvastatin > than or = to 2.5/40 mg Ezetimibe + Simvastatin 10/80 mg Simvastatin 80mg Discharge Plan Admission Admit Date/Time: 11/19/23 13:44 Primary Reason for Your Visit: Alcohol withdrawal, alcohol detox Attending Provider: Vasquez Moyer Primary Care Provider: Vasquez Reyes Consulting Providers: Tenisha Swift Instructions Additional Instructions / Restrictions: Finish your outpatient course of antibiotics for sinusitis if you have not finished them Follow-up with 180 as directed Discharge Orders/Prescriptions Prescriptions: Continued amlodipine 5 mg tablet 5 mg PO DAILY PRN (Reason: htn) Patient Comments: pt takes as needed, should be scheduled. fluoxetine 40 mg capsule 60 mg PO DAILY Referrals / Follow Up: Vasquez Reyes MD [Primary Care Provider] - Disposition Disposition (needs filled in before D/C Order can be placed): Home, Self Care Charges/Coding Visit Charges Inpatient E&M: 64217 Disch Hosp
--- NOTE | 2023-11-21 14:57 | PHA.DC.MR.R ---
Pharmacy [place] Med Reconciliation Pharmacy Service has performed discharge medication reconciliation for this patient. The patient's discharge medication list was reviewed for discrepancies and discrepancies were resolved. Medications at Discharge Home Medications amlodipine 5 mg tablet 5 mg PO DAILY PRN htn 11/19/23 fluoxetine 40 mg capsule 60 mg PO DAILY 11/19/23
== END 2023-11-21 15:25 | disposition home or self-care (01) | DRG 897 ==
LOC: ED 23:45 → MS3 11-19 17:16
PROVIDERS: Admitting Provider Family Medicine; Emergency Provider Emergency Medicine; PCP Family Medicine; Visit Provider Internal Medicine
DX: F10.139 Alcohol abuse with withdrawal, unspecified (principal); E66.9 Obesity, unspecified; K70.10 Alcoholic hepatitis without ascites; F32.A Depression, unspecified; I10 Essential (primary) hypertension; K21.9 Gastro-esophageal reflux disease without esophagitis; F17.220 Nicotine dependence, chewing tobacco, uncomplicated; F10.129 Alcohol abuse with intoxication, unspecified; Y90.8 Blood alcohol level of 240 mg/100 ml or more; R94.5 Abnormal results of liver function studies; Z68.36 Body mass index [BMI] 36.0-36.9, adult; Z79.899 Other long term (current) drug therapy
CPT/HCPCS: 36415; 73130; 80048; 80076; 80307; 80320; 83735; 84100; 85025; 99285; J7120; A4216; G0480

== ENCOUNTER 2024-02-08 10:01 | Emergency (ER) | payer OTHER, SELFPAY ==
[2024-02-08 10:01] VITALS: BP 178/114; PULSE 87; RESP 16; TEMP 36.2; O2SAT 100; BMI 36.1
--- NOTE | 2024-02-08 10:19 | EX.ED.DYSGE1 ---
HPI History of Present Illness Chief Complaint: Abd Pain [facility] Medical History Alcohol abuse Anxiety and depression Chewing tobacco use GERD (gastroesophageal reflux disease) Hypertension Obesity OCD (obsessive compulsive disorder) Home Medications ?Medication ?Instructions ?Recorded ?Last Taken ?Type amlodipine 5 mg tablet 5 mg PO DAILY PRN htn 11/19/23 11/13/23 History fluoxetine 40 mg capsule 60 mg PO DAILY 11/19/23 11/18/23 History omeprazole 20 mg capsule,delayed 20 mg PO DAILY #30 CAPSULES 02/08/24 Unknown Rx release Allergy/AdvReac Type Severity Reaction Status Date / Time No Known Allergies Allergy Verified 02/08/24 10:01 Family History Father Diabetes CAD (coronary artery disease) Hypertension Heart disease Father No problems noted. Mother Afib Hypothyroid Surgical History Hx of tonsillectomy Social History (Updated 11/19/23 @ 20:[address] Tenisha Swift MD) adopted: No household members: spouse and children housing: house number of children: 2 current occupational status: employed current occupation: Nurse current occupational exposures/hazards: No pets and animals: No history of recent travel: No Smoking Status: Current some day smoker tobacco type: cigarettes Smokeless tobacco user: chewing tobacco alcohol intake: current alcohol intake frequency: 3 or more drinks per day details: Binge EtOH abuse, 15 beer/hard seltzer drinks typically in 1 setting. substance use type: does not use EXAM Physical Exam Const Vital Signs: 02/08/24 10:01 Temperature 97.2 F L Temperature Source Temporal Pulse Rate 87 Respiratory Rate 16 Blood Pressure 178/114 H Blood Pressure Mean 135 Pulse Ox 100 Oxygen Delivery Method Room Air MDM MDM MDM Narrative Medical decision making narrative: HISTORY OF PRESENT ILLNESS: 24year old male presents with right upper quadrant abdominal pain. Patient states he had intermittent abdominal pain for last several months. Worse for last 2 weeks. Denies vomiting but notes nausea. Denies fever. Denies history abdominal surgeries. No blood in his stool. No urinary complaints. REVIEW OF SYSTEMS: All other systems reviewed and are negative except as noted in the history of present illness. At least 10 review of systems reviewed and are negative except as noted in history of present illness. PHYSICAL EXAM: Nursing triage notes reviewed, Vital signs reviewed Constitutional: please see [facility] HENT: MMM Eyes: Pupils equal round and reactive to light, Extraocular muscles intact Neck: No stridor, no JVD, full neck ROM Lungs: Clear to auscultation, No wheezing or rales. No increased work of breathing, no conversational dyspnea, no accessory muscle use, no nasal flaring. No respiratory distress noted Heart: Regular rate and rhythm, No murmurs, No rubs and No gallops, 2+ distal pulses (radial, femoral, posterior tibial) in all extremities Abdomen: Soft, negative Pang sign no rigidity, rebound or guarding, no obvious peritoneal signs, no palpable pulsatile abdominal masses, no auscultated abdominal bruit : No CVAT Extremities: No edema Neuro: No focal neurological deficits, cranial nerves II through XII intact, 5/5 strength in all extremities. Intact sensation to light touch in all extremities, 2+ reflexes bilateral patella tendons. Normal gait. No ataxia. Skin: No rash or lesions noted MEDICAL DECISION MAKING: Chief Complaint: abdominal pain External records reviewed: Imaging reviewed: CT scan abdomen pelvis from [address] scan Factors affecting care: Alcohol abuse Social determinants of health: Alcohol abuse History obtained from others: n patient's Consults: none [facility] Narrative: Patient was initially hypertensive with a blood pressure 174 114 otherwise afebrile and nontoxic-appearing. Exam without appreciable tenderness. Negative Pang sign. I considered the following differential diagnosis: AAA, small bowel obstruction, abdominal perforation, appendicitis, pancreatitis, hepatobiliary pathology (acute cholecystitis), mesenteric ischemia, abnormalities such as pyelonephritis, nephrolithiasis I obtained a broad lab and imaging workup to further elucidate etiology of patient complaint. I treat the patient with 50 mg IV Toradol, 4 mg IV Zofran, 1 L normal saline. ALL IMAGES (IF OBTAINED) HAVE BEEN PERSONALLY REVIEWED AND INTERPRETED BY MYSELF. CBC without leukocytosis, severe anemia, no thrombocytopenia. Lipase is wnl indicating no pancreatic inflammation. CMP without evidence of acute kidney injury, significant electrolyte abnormality, anion gap, no evidence hepatobiliary pathology. Right upper quadrant ultrasound shows no evidence of obvious hepatobiliary obstruction. I see nothing that would suggest an acute abdomen at this time. Based on history physical exam, risk factors, my suspicion for bowel obstruction, incarcerated hernia, perforated viscus, acute cholecystitis, appendicitis is very low. There is no evidence of peritonitis sepsis or toxicity at this time. I feel the patient can be managed as an outpatient with follow-up with her/his primary physician and/or psychiatric nursing aide in the next 24 to 48 hours or soon as possible. Instructions have been given for the patient to return to the ED for worsening pain, anorexia, high fevers, intractable vomiting or bleeding. Further instructed patient to follow with his PCP for outpatient blood pressure check to ascertain if he required initiation of blood pressure medicine Patient was given close GI follow-up. The patient and/or family, caregivers express understanding. The patient and/or family, caregivers agrees with the plan. Total critical care time today provided was at least 0 minutes. This excludes separately billable procedures. Critical care time (if documented) is secondary to the patient having high probability of clinically significant/life threatening deterioration in the patient's condition which required my urgent intervention. Shared decision making: I will have a discussion with the patient and or visitors regarding risk/benefits of further testing or admission. They will be made aware of of the risk/benefits inherent in this decision they will be given the opportunity to voice understanding. Impression: 1. Right upper quad abdominal pain 2. Elevated blood pressure 3. Alcohol abuse 4. Alcohol-induced gastritis Disposition: Discharge home Bradley Mars DO This note was generated with [employer] dictation software. It may contain incorrect words, spelling, and punctuation that were not noted in review of the chart prior to signing. Lab Data Labs: Laboratory Results - last 24 hr 02/08/24 11:00 WBC 5.5 RBC 5.07 Hgb 15.5 Hct 44.4 MCV 87.6 MCH 30.6 MCHC 34.9 RDW Std Deviation 36.2 RDW Coeff of Radha 11.5 L Plt Count 208 MPV 10.4 Immature Gran % (Auto) 0.400 Neut % (Auto) 53.3 Lymph % (Auto) 36.9 [place] % (Auto) 7.1 Eos % (Auto) 1.6 Baso % (Auto) 0.7 Absolute Neuts (auto) 3.0 Absolute Lymphs (auto) 2.04 Nucleated RBC % 0 Sodium 139 Potassium 4.2 Chloride 108 H Carbon Dioxide 26.0 Anion Gap 5 BUN 10 Creatinine 1.08 Estim Creat Clear Calc 128.48 Est GFR (MDRD) Af Amer 107 Est GFR (MDRD) Non-Af 89 BUN/Creatinine Ratio 9.3 L Glucose 93 Calcium 9.7 Total Bilirubin 0.70 Direct Bilirubin 0.16 AST 36 ALT 50 Alkaline Phosphatase 100 Total Protein 7.8 Albumin 4.5 Globulin 3.3 Lipase 31 Radiography Diagnostic Testing: Clinical Impression(s) from Imaging Studies Gallbladder Ultrasound 02/08/24 10:48 IMPRESSION: Normal right upper quadrant ultrasound examination. Electronically Signed: Vahid Cherry MD at 11:56 EDT , Discharge Plan Triage Chief Complaint: Abd Pain ED Provider: Bradley Mars Dx/Rx/DC Orders Instructions: ED Gastritis (Adult) Prescriptions: New omeprazole 20 mg capsule,delayed release(DR/EC) 20 mg PO DAILY Qty: 30 0RF No Action amlodipine 5 mg tablet 5 mg PO DAILY PRN (Reason: htn) Patient Comments: pt takes as needed, should be scheduled. fluoxetine 40 mg capsule 60 mg PO DAILY Primary Care Provider: Vasquez Reyes Referrals: Vasquez Reyes MD [Primary Care Provider] - Print Language: Indonesian
--- NOTE | 2024-02-08 10:48 | US_ITS ---
STUDY: ABDOMINAL ULTRASOUND - RIGHT UPPER QUADRANT REASON FOR VISIT: Male, 24 years old right upper quadrant pain. TECHNIQUE: Ultrasound evaluation of the right upper quadrant was performed with real-time and static shane-scale imaging. TECHNICAL QUALITY: Limited. Examination limited by bowel gas. COMPARISON: None. FINDINGS: Liver: The liver measures 17.5 cm. There is normal echogenicity of the liver. The bile ducts are within normal limits. There is hepatic color flow. The direction of portal flow is hepatopetal. There is no demonstrated mass lesion. Gallbladder: Normal distended gallbladder. The gallbladder wall measures 1.4 mm. There is a negative sonographic Pang''s sign. There is no pericholecystic fluid. There are no gallstones. Common Bile Duct (C.B.D.): The common bile duct measures 5 mm. Pancreas: There is nonvisualization of the pancreas due to overlying bowel gas. Right Kidney: Normal size of the right kidney. The right kidney measures 11.1 cm x 5.8 cm x 6.4 cm. Normal renal cortex. The right cortex measures 1.1 cm. There is no demonstrated renal mass or cyst. There is no right hydronephrosis. US/Gallbladder IMPRESSION: Normal right upper quadrant ultrasound examination. Electronically Signed: Vahid Cherry MD at 11:56 EDT ,
[2024-02-08] MEDS: Ondansetron 4 MG/2 ML Vial IV (11:02)
[2024-02-08] MEDS: 0.9% Normal Saline (1000mL) 1,000 ML 999 ML IV (11:02)
[2024-02-08] MEDS: Ketorolac 15 MG/ML Vial IV (11:03)
[2024-02-08 11:23] LABS: AST(SGOT) 36 U/L (15-37); Absolute Lymphocyte Count 2.04 X10^3/uL (0.83-4.51); Alanine Aminotransfer ALT/SGPT 50 U/L (16-61); Albumin, Serum 4.5 g/dL (3.2-5.0); Alkaline Phosphatase 100 U/L (45-117); Anion Gap 5 (5-15); BUN 10 mg/dL (7-18); BUN/Creat Ratio 9.3 RATIO (10-20); Basophil# 0.04 X10^3/uL; Basophil% 0.7 % (0-1); Bilirubin, Direct 0.16 mg/dL (0.00-0.30); Calcium,Total 9.7 mg/dL (8.5-10.1); Chloride 108 mmol/L (98-107); Creatinine, Serum 1.08 mg/dL (0.70-1.30); EST Glomerular Filtration Rate 89 mL/min (>60); Eosinophil# 0.09 X10^3/uL; Eosinophils% 1.6 % (0-5); Est Glom Filt Rate - Afr Amer 107 mL/min (>60); Estimated Creatinine Clearance 128.48 ml/min; Globulin 3.3 g/dL (2.2-4.2); Glucose 93 mg/dL (74-106); Hematocrit 44.4 % (40-54); Hemoglobin 15.5 g/dL (13.0-16.5); Lipase 31 U/L (13-75); Lymphocyte # 2.04 X10^3/ul (0.83-4.51); Lymphocyte % 36.9 % (19-41); Mean Corp Hgb Conc 34.9 g/dL (32-36); Mean Corpuscular Hgb 30.6 pg (27.0-32.0); Mean Corpuscular Volume 87.6 fL (80-94); Mean Platelet Vol. 10.4 fl (6.2-12.0); Monocyte# 0.39 X10^3/uL; Monocyte% 7.1 % (0-10); NRBC Flagged by Analyzer 0 % (0-5); Neutrophil # 2.95 X10^3/uL (2.7-7.7); Neutrophil % 53.3 % (47-70); Platelet Count 208 K/mm3 (150-450); Potassium 4.2 mmol/L (3.5-5.1); Protein, Total 7.8 g/dL (6.4-8.2); RBC Distribution Width CV 11.5 % (11.6-14.6); RBC Distribution Width SD 36.2 fl (35.1-43.9); Red Blood Count 5.07 M/mm3 (4.6-6.2); Sodium Level 139 mmol/L (136-145); White Blood Count 5.5 K/mm3 (4.4-11.0)
[2024-02-08 12:01] VITALS: BP 128/81; PULSE 74; RESP 16; O2SAT 100
[2024-02-08 12:32] VITALS: BP 128/81; PULSE 74; RESP 16; TEMP 36.6; O2SAT 100
== END 2024-02-08 12:40 | disposition home or self-care (01) ==
PROVIDERS: Emergency Provider Emergency Medicine; PCP Family Medicine; Visit Provider Emergency Medicine
DX: R10.11 Right upper quadrant pain (principal); F17.210 Nicotine dependence, cigarettes, uncomplicated; F10.10 Alcohol abuse, uncomplicated; K21.9 Gastro-esophageal reflux disease without esophagitis; I10 Essential (primary) hypertension; Z79.899 Other long term (current) drug therapy; F17.220 Nicotine dependence, chewing tobacco, uncomplicated; K29.20 Alcoholic gastritis without bleeding
CPT/HCPCS: 76705; 80048; 80076; 83690; 85025; 96361; 96374; 96375; 99283; J7030; J2405

== ENCOUNTER → 2024-03-20 | Outpatient (CLI) | payer OTHER, SELFPAY ==
[2024-03-20 10:02] LABS: Absolute Lymphocyte Count 1.82 X10^3/uL (0.83-4.51); Absolute Neutrophil Count 3.1 X10^3/uL (2.0-7.7); Basophil# 0.05 X10^3/uL; Basophil% 0.9 % (0-1); Eosinophil# 0.08 X10^3/uL; Eosinophils% 1.5 % (0-5); Hematocrit 45.8 % (40-54); Hemoglobin 16.1 g/dL (13.0-16.5); Lymphocyte # 1.82 X10^3/ul (0.83-4.51); Lymphocyte % 33.2 % (19-41); Mean Corp Hgb Conc 35.2 g/dL (32-36); Mean Corpuscular Hgb 30.7 pg (27.0-32.0); Mean Corpuscular Volume 87.4 fL (80-94); Mean Platelet Vol. 9.9 fl (6.2-12.0); Monocyte# 0.41 X10^3/uL; Monocyte% 7.5 % (0-10); NRBC Flagged by Analyzer 0 % (0-5); Neutrophil # 3.06 X10^3/uL (2.7-7.7); Neutrophil % 55.8 % (47-70); Platelet Count 220 K/mm3 (150-450); RBC Distribution Width CV 11.9 % (11.6-14.6); RBC Distribution Width SD 38.1 fl (35.1-43.9); Red Blood Count 5.24 M/mm3 (4.6-6.2); White Blood Count 5.5 K/mm3 (4.4-11.0)
[2024-03-20 10:22] LABS: Erythrocyte Sedimentation Rate 3 mm/hr (0-20)
[2024-03-20 10:59] LABS: ALB/GLOB Ratio 1.3 RATIO (0.9-2.4); AST(SGOT) 34 U/L (15-37); Alanine Aminotransfer ALT/SGPT 51 U/L (16-61); Albumin, Serum 4.3 g/dL (3.2-5.0); Alkaline Phosphatase 98 U/L (45-117); Anion Gap 8 (5-15); BUN 13 mg/dL (7-18); BUN/Creat Ratio 11.4 RATIO (10-20); CRP < 2.90 mg/L (0.0-3.0); Calcium,Total 9.5 mg/dL (8.5-10.1); Chloride 108 mmol/L (98-107); Creatinine, Serum 1.14 mg/dL (0.70-1.30); EST Glomerular Filtration Rate 83 mL/min (>60); Est Glom Filt Rate - Afr Amer 101 mL/min (>60); Ferritin 224 ng/mL (26-388); Globulin 3.4 g/dL (2.2-4.2); Glucose 101 mg/dL (74-106); Potassium 4.2 mmol/L (3.5-5.1); Protein, Total 7.7 g/dL (6.4-8.2); Sodium Level 139 mmol/L (136-145)
[2024-03-24 09:34] LABS: Anti-Centromere B Ab <0.2 AI (0.0-0.9); Anti-Chromatin <0.2 AI (0.0-0.9); Anti-Jo <0.2 AI (0.0-0.9); Anti-Mitochondrial AB <20.0 Units (0.0-20.0); Anti-Scleroderma-70 AB <0.2 AI (0.0-0.9); Anti-dsDNA Ab 1 IU/mL (0-9); Beef <0.10 kU/L (Class 0); Chocolate <0.10 kU/L (Class 0); Codfish <0.10 kU/L (Class 0); Corn 0.61 kU/L (Class II); Egg, Whole <0.10 kU/L (Class 0); Milk (Cow) <0.10 kU/L (Class 0); Mussels <0.10 kU/L (Class 0); Peanut 1.06 kU/L (Class II); Pork <0.10 kU/L (Class 0); RNP Ab <0.2 AI (0.0-0.9); SJOGREN'S Anti-SS-A test < 0.2 AI (0.0-0.9); SJOGREN'S Anti-SS-B test < 0.2 AI (0.0-0.9); Salmon <0.10 kU/L (Class 0); Shrimp 2.34 kU/L (Class III); Smith Ab <0.2 AI (0.0-0.9); Soybean 0.63 kU/L (Class II); Tuna <0.10 kU/L (Class 0); Wheat 1.02 kU/L (Class II)
[2024-03-25 11:09] LABS: ACCA 25 units (0-90); ALCA 11 units (0-60); AMCA 29 units (0-100); Angiotensin Convert Enzyme 63 U/L (14-82); Anti-Smooth Muscle ABS 5 Units (0-19); Cytoplasmic Ab (C-ANCA) <1:20 titer (Neg:<1:20); Endomysial Antibody IgA Negative (Negative); Gastrin, Serum 14 pg/mL (0-115); Immunoglobulin A 81 mg/dL (90-386); Perinuclear Ab (P-ANCA) <1:20 titer (Neg:<1:20); gASCA 4 units (0-50); t-Transglutaminase IgA <2 U/mL (0-3)
== END | disposition home or self-care (01) ==
LOC: PAVLAB 09:31
PROVIDERS: PCP Family Medicine; Referring Provider Internal Medicine Gastroenterology; Visit Provider Internal Medicine Gastroenterology
DX: R10.9 Unspecified abdominal pain (principal)
CPT/HCPCS: 36415; 80053; 82164; 82728; 82784; 82941; 83516; 84443; 85025; 86003; 86005; 86036; 86140; 86225; 86235; 86255; 86256; 86671

== ENCOUNTER 2024-04-10 06:08 | Day surgery (SDC) | payer OTHER, SELFPAY ==
[2024-04-10] VITALS (9 sets, daily range): BP systolic 108–152; BP diastolic 73–102; PULSE 83–97; RESP 16–18; TEMP 37–37.4; O2SAT 94–99; BMI 36.4
--- NOTE | 2024-04-10 06:29 | PCM.HP.BLA ---
History and Physical Date of Admission: 04/10/24 VERONIKA GLEZ, is a 24 M who presents to the office today for initial consult. [facility] ED 8.09.01 abd pain - presents with right upper quadrant abdominal pain. Patient states he had intermittent abdominal pain for last several months. Worse for last 2 weeks. gallbladder US 02.08.24 Normal right upper quadrant ultrasound examination. *BGI established 03.20.24 pt reports the following symptoms have been going on for about a month and a half that started as RUQ pain; constant nausea, abd pain, bloating, and HB. Has tried carafate, omeprazole, zofran, and other OTC medications and reports none of them have seemed to help. Pt states that his symptoms are worse with stress. Reports regular bm. He states that he has been dealing with a lot of stress and anxiety and they have been titrating up his antidepression medicines in order to help his anxiety issues. He states that he did have an alcohol problem in the past but that is behind him. He does not know if his anxiety has gotten worse since he stopped drinking. He has never been worked up for porphyria in. He has no history of alcohol induced pancreatitis or chronic pancreatitis. He has not had a MRI of his hepatobiliary system. He did have an ultrasound: Liver: The liver measures 17.5 cm. There is normal echogenicity of the liver. The bile ducts are within normal limits. There is hepatic color flow. The direction of portal flow is hepatopetal. There is no demonstrated mass lesion. Gallbladder: Normal distended gallbladder. The gallbladder wall measures 1.4 mm. There is a negative sonographic Pang''s sign. There is no pericholecystic fluid. There are no gallstones. Common Bile Duct (C.B.D.): The common bile duct measures 5 mm. Pancreas: There is nonvisualization of the pancreas due to overlying bowel gas. Right Kidney: Normal size of the right kidney. The right kidney measures 11.1 cm x 5.8 cm x 6.4 cm. Normal renal cortex. The right cortex measures 1.1 cm. There is no demonstrated renal mass or cyst. There is no right hydronephrosis. He had a history of intermittent abdominal pain and it required a CT scan of the abdomen pelvis due to persistent left upper and lower quadrant pain. Back in 2020. CT scan abdomen pelvis : normal enhanced CT of the abdomen and pelvis. Spleen at the upper limits of normal in size He denies any night sweats, weight loss, fatigue, weakness, chest pain or shortness of breath. He does have constant nausea. He denies any marijuana usage. ROS Const Constitutional: No fatigue, fever(s) or weight change ENT ENT: No difficulty swallowing Gastro GI: Positive for abdominal pain, bloating, heartburn, excessive flatus and nausea/dyspepsia; No belching, change in bowel habits, change in stool character, coffee ground emesis, constipation, cramping, diarrhea, difficulty swallowing, feeling full early, incontinent of stools, Vomiting blood/hematemesis, Blood in stool, loose stools, Black,tarry stools, pain with swallowing, vomiting or other Musc Musculoskeletal: No joint pain Skin Skin: No yellowing of the eye or itchy eyes Psych Psychiatric: Positive for anxiety and No depression Endo Endocrine: No fatigue or weight change Aller/Imm Allergy/Immunologic: No itchy eyes Leoncio/Lymp Hematologic/Lymphatic: No easy bleeding or easy bruising Exam Const General: cooperative and comfortable Nutritional Appearance: average body habitus and well nourished [facility] Head: normal to inspection Ears: hearing grossly normal bilaterally Nose: external nose normal Face and sinus: normal facial exam Mouth: oral mucosae normal Throat: posterior oropharynx normal Eyes General: appearance normal, both eyes and all related structures Neck Neck: normal visual inspection Chest Chest palpation & inspection: normal inspection of the chest and normal palpation of entire chest wall Resp Effort & Inspection: normal respiratory effort Auscultation: Bilateral: Clear to Auscultation Cardio Palpation: normal PMI Rate: regular rate Rhythm: regular rhythm GI Inspection: normal to inspection Auscultation: normal bowel sounds Percussion: normal to percussion Palpation: no hepatosplenomegaly Skin General: no rashes or lesions noted Neuro General: patient alert Extrem General: normal to inspection Psych Affect: normal affect Assessment and Plan Assessment and Plan (1) Abdominal pain: Status: Acute Plan: Differential diagnosis for a young man with history of alcoholism and possible depression and anxiety who is currently not drinking any alcohol could be alcohol induced gastritis, nonerosive reflux disease (he said that he tried omeprazole and it made it worse.), Previous diagnosis of laryngal reflux disease refractory to PPI therapy, costochondritis, fibromyalgia. He said he has been checked for celiac disease in the past and that was normal. Has not been checked for any small vessel vasculitis or autoimmune disease that may be affecting his GI tract. We will start with doing biochemical workup. We will also perform EGD with Michelle. Orders: Orders ANCA Today R10.9 - Unspecified abdominal pain Celiac Disease Profile Today R10.9 - Unspecified abdominal pain CRP Today R10.9 - Unspecified abdominal pain Erythrocyte Sed Rate Today R10.9 - Unspecified abdominal pain Comprehensive Metabolic Profil Today R10.9 - Unspecified abdominal pain IBD Expanded Profile Today R10.9 - Unspecified abdominal pain Allergen, Food Profile 14 Today R10.9 - Unspecified abdominal pain MIRTA Comprehensive Panel Today R10.9 - Unspecified abdominal pain Ferritin Today R10.9 - Unspecified abdominal pain Anti-Smooth Muscle ABS Today R10.9 - Unspecified abdominal pain CBC W/Diff, Automated Today R10.9 - Unspecified abdominal pain Anti-Mitochondrial AB Today R10.9 - Unspecified abdominal pain Angiotensin Convert Enzyme Today R10.9 - Unspecified abdominal pain Thyroid Stim Hormone (TSH) Today R10.9 - Unspecified abdominal pain Gastrin, Serum Today R10.9 - Unspecified abdominal pain Gastric Emptying Study Today R10.9 - Unspecified abdominal pain Hepatobilliary Img w/Pharm Int Today R10.9 - Unspecified abdominal pain I have examined the patient and the H&P has been reviewed. There are no clinical changes since date of exam.
[2024-04-10] MEDS: Lactated Ringers 1,000 ML 15 ML IV (06:30)
--- NOTE | 2024-04-10 06:50 | PCM.PRE.AN2 ---
ASA Classification* ASA Classification ASA Classification: 2 Assessment & Plan Anesthesia* Anesthesia Assessment Anesthesia Assessment: Discussed sedation and/or anesthesia options, risks, benefits, and alternatives with patient/parents/legal guardian/POA. Questions invited. The patient/parents/legal guardian/POA seems to understand and agrees to proceed with anesthesia plan. Reviewed the physical assessment, medical history, allergy history and patient home medications list prior to surgery/procedure/anesthetic and documented any changes. Performed airway and anesthesia risk assessments. Anesthesia Type Anesthesia Type: MAC Anesthesia Focused Assessment* Temperature: 98.6 F Pulse Rate: 97 Blood Pressure: 152/102 Respiratory Rate: 16 Pulse Ox: 99 Airway Assessment Mouth opens: >3 cm Mallampati Score: II Focused Labs Anesthesia Preop lab: CBC WBC 5.5 K/mm3 (4.4-11.0) 03/20/24 09:40 RBC 5.24 M/mm3 (4.6-6.2) 03/20/24 09:40 Hgb 16.1 g/dL (13.0-16.5) 03/20/24 09:40 Hct 45.8 % (40-54) 03/20/24 09:40 Plt Count 220 K/mm3 (150-450) 03/20/24 09:40 CHEMISTRY Potassium 4.2 mmol/L (3.5-5.1) 03/20/24 09:40 Sodium 139 mmol/L (136-145) 03/20/24 09:40 Magnesium 2.2 mg/dL (1.6-2.6) 11/19/23 00:20 Phosphorus 2.7 mg/dL (2.5-4.9) 11/19/23 00:20 BUN 13 mg/dL (7-18) 03/20/24 09:40 Creatinine 1.14 mg/dL (0.70-1.30) 03/20/24 09:40 Glucose 101 mg/dL (74-106) 03/20/24 09:40 TSH 2.060 uIU/mL (0.358-3.740) 03/20/24 09:40 COAG Pre-Assessment Diagnosis/Proposed Procedure Planned Operative Procedure(s): EGD/PH PROBE Anesthesia History Anesthesia History - product marketing director: Anesthesia History - product marketing director Hx Hospitalization No 04/08/24 10:28 Any Problems With Anesthesia No 04/08/24 10:28 Cholinesterase deficiency No 04/08/24 10:28 You/Your Family Experience No 04/08/24 10:28 fever (hyperthermia) with Relationship Recent Exposure to Contagious No 04/10/24 06:41 Disease Does patient have nerve No 04/08/24 10:28 stimulator Patient instructed to have device shut off --Does patient have Pacemaker No 04/10/24 06:41 or ICD? When Was Last Pacemaker Check QUESTION #4 FULL TEXT: You/Your Family Experience fever (hyperthermia) with Anesthesia Last Oral Intake Last Oral intake: Last Oral Intake NPO since 20:30 04/10/24 06:41 Meds taken in AM with sips of No 04/10/24 06:41 water? Meds patient instructed to take am of surgery PONV PONV - product marketing director: PONV - product marketing director Female No 04/08/24 10:28 HX of Motion Sickness No 04/08/24 10:28 HX of N/V After Surgery No 04/08/24 10:28 Non-Smoker No 04/08/24 10:28 Duration of Surgery greater No 04/08/24 10:28 than 60 minutes Number of Risk Factors PONV Score Height & Weight Height & Weight: Anesthesia: Height & Weight Height 5 ft 9 in 04/10/24 06:41 Weight: 112 kg 04/10/24 06:41 Body Mass Index (BMI) 36.4 04/10/24 06:41 Respiratory Assessment Respiratory Assessment - product marketing director: Respiratory Tract Infection Hx - product marketing director Hx Respiratory Tract Infection No 04/08/24 10:28 STOP Sleep Apnea STOP Sleep Apnea - product marketing director: STOP Sleep Apnea - product marketing director Hx Hypertension Yes: PATIENT STATES DOESNT 04/08/24 10:28 TAKE DAILY Hx Sleep Apnea No 04/08/24 10:28 CPAP BIPAP Do you snore loudly (louder Yes 04/08/24 10:28 than talking or can be heard Do you often feel tired/ Yes 04/08/24 10:28 fatigued/ sleepy during daytime? Has anyone observed you stop Yes 04/08/24 10:28 breathing during sleep? STOP Results Positive 04/08/24 10:28 QUESTION #5 FULL TEXT : Do you snore loudly (louder than talking or can be heard through closed doors)? Tobacco Use History Tobacco Use History - product marketing director: Tobacco Use History - product marketing director Tobacco Use Smoking Status Current every day smoker 04/08/24 10:28 Hx Tobacco Use No 04/08/24 10:28 Years Smoking Packs Smoked per Day Smoking Cessation Date was within the last 15 years Hx Smoking Cessation Date Hx Smoking Cessation Counseling Hematologic Medial History Hematologic Hx - product marketing director: Hematologic Medical Hx - software engineer backend Hx of Blood Transfusion No 04/08/24 10:28 Hx of Transfusion in last 3 No 04/08/24 10:28 Months Date of Last Transfusion (if within last 3 months) Ever experience any problems No 04/08/24 10:28 with transfusion(s)? Specify any problems Hx of Preganancy in last 3 N/A 04/08/24 10:28 Months Nurse Filling Out Transfusion DSCHRIBER 04/08/24 10:28 & Questions: Date: 04/08/24 04/08/24 10:28 Time: 10:29 04/08/24 10:28 Patient unable to answer at this time (ie. confused, unrespo /Reproduction History /Reproductive History - product marketing director: /Reproductive Hx- product marketing director Hx Now No 04/08/24 10:28 Gestational Age (in weeks): EDC: Hx Hx Para Hx Section SAB No 04/08/24 10:28 Active Medications Active Medications: Current Medications Generic Name Dose Route Start Last Admin Trade Name Freq PRN Reason Stop Dose Admin Lactated Ringer's 1,000 mls @ 15 mls/hr 04/10/24 06:30 IV .Q48H HIRAM PFSH Medical History Anemia Asthma Chewing tobacco use Obesity Anxiety and depression OCD (obsessive compulsive disorder) Alcohol abuse GERD (gastroesophageal reflux disease) Alcohol intoxication Suicidal ideation Hypertension Home Medications ?Medication ?Instructions ?Recorded ?Last Taken ?Type amlodipine 5 mg tablet 5 mg PO DAILY htn 11/19/23 04/09/24 History fluoxetine 40 mg capsule 80 mg PO DAILY 03/20/24 Unknown History hydroxyzine pamoate 25 mg capsule 25 mg PO Q8H PRN anxiety 04/08/24 Unknown History (Vistaril) loratadine 10 mg tablet (Claritin) 10 mg PO DAILY 10/01/24 Unknown History magnesium 250 mg tablet 250 mg PO DAILY 04/08/24 Unknown History multivitamin (Daily Multi-Vitamin 1 tab PO DAILY 04/08/24 Unknown History tablet) Allergy/AdvReac Type Severity Reaction Status Date / Time No Known Allergies Allergy Verified 04/10/24 06:40 Family History Father Diabetes CAD (coronary artery disease) Hypertension Heart disease Father No problems noted. Mother Afib Hypothyroid Surgical History History of tonsillectomy and adenoidectomy History of esophagogastroduodenoscopy (EGD) Social History adopted: No household members: spouse and children housing: house number of children: 2 current occupational status: employed current occupation: Nurse current occupational exposures/hazards: No pets and animals: No history of recent travel: No Smoking Status: Current every day smoker tobacco type: cigarettes and smokeless tobacco Smokeless tobacco user: chewing tobacco alcohol intake: current alcohol intake frequency: 3 or more drinks per day details: Binge EtOH abuse, 15 beer/hard seltzer drinks typically in 1 setting. substance use type: does not use Review of Systems (Anesthesia) ROS Narrative System reviewed and no additional complaints, except as documented.
--- NOTE | 2024-04-10 07:00 | EGD_PTH ---
PATIENT: VERONIKA GLEZ LOC: EN U#:[id number] AGE/SX: 24/M ROOM: RE04/10/[address]: Dr. Bharath Mccoy DO : 2000 BED: DIS: 04/10/2024 SPEC #: [id number] RECD: 04/10/24 09:24 STATUS: KRUNAL RIZWAN #: [id number] KING: 04/10/24 07:[address]: Bharath Mccoy DEPT: SURGICAL PATHOLOGY RECD BY: Lissy Conway ENTERED: 04/10/24 10:47 SP TYPE: EGD BIOPSY OT DR: Dr. Vasquez Reyes MD Tissues: A - Esophagus, NOS B - Esophagus, NOS C - Gastric mucous membrane D - Duodenum, NOS Procedures: Special Stain Group I Surgery Specimen Level IV Alcian Blue/PAS (control) HEADER OPERATION: EGD PRE-OP DIAGNOSIS: Abdominal pain TISSUE SUBMITTED: A- Distal esophagus biopsy, B- Random esophagus biopsy, C- Gastric antrum biopsy, D- Duodenum biopsy MICROSCOPIC DIAGNOSIS A. Distal esophagus, biopsy: Fragments of gastroesophageal mucosa with moderate chronic inflammation and minimal acute inflammation. Intestinal metaplasia (goblet cell metaplasia) not identified. See comment. B. Esophagus, random biopsy: Fragments of benign squamous epithelium. See comment. C. Gastric antrum, biopsy: Mild gastritis. See microscopic description and comment. D. Duodenum, biopsy: Fragments of duodenal mucosa with mild non-specific chronic inflammation, Cathy's gland hyperplasia and focal gastric metaplasia. SJ. 04/11/2024 COMMENT A. Alcian blue/PAS stain with matched control is used in the evaluation of the specimen. B. Increased number of eosinophils consistent with eosinophilic esophagitis are not seen. C. The results of immunohistochemistry for Helicobacter pylori will be reported separately ([id number]). MICROSCOPIC DESCRIPTION Slides are reviewed. C. The specimen shows fragments of gastric mucosa with chronic inflammatory cell infiltrates in the lamina propria consisting of lymphocytes and plasma cells, consistent with mild chronic gastritis. GROSS DESCRIPTION A. Received in fixative is one container labeled with the patient's name and designated Distal esophagus biopsy. The specimen consists of multiple irregular fragments of light musa soft tissue that in aggregate measure 1.0 x 0.3 x 0.1 cm. The specimen is totally submitted in one cassette. B. Received in fixative is one container labeled with the patient's name and designated Random esophagus biopsy. The specimen consists of multiple irregular fragments of light musa soft tissue that in aggregate measure 0.8 x 0.4 x 0.1 cm. The specimen is totally submitted in one cassette. C. Received in fixative is one container labeled with the patient's name and designated Gastric antrum biopsy. The specimen consists of two irregular fragments of light musa soft tissue that in aggregate measure 0.5 x 0.5 x 0.1 cm. The specimen is totally submitted in one cassette. D. Received in fixative is one container labeled with the patient's name and designated Duodenum biopsy. The specimen consists of multiple irregular fragments of light musa soft tissue that in aggregate measure 1.2 x 0.3 x 0.1 cm. The specimen is totally submitted in one cassette. SJ 04/10/2024 TC:3 CPT:87461k7,64165
--- NOTE | 2024-04-10 07:00 | IMM_PTH ---
PATIENT: VERONIKA GLEZ LOC: EN U#:[id number] AGE/SX: 24/M ROOM: RE04/10/[address]: Dr. Bharath Mccoy DO : 2000 BED: DIS: 04/10/2024 SPEC #: [id number] RECD: 04/10/24 10:18 STATUS: KRUNAL REQ #: [id number] KING: 04/10/24 07:[address]: Bharath Mccoy DEPT: IMMUNOHISTOCHEMISTRY RECD BY: Niranjan Castillo ENTERED: 04/10/24 10:18 SP TYPE: IMMUNO OTHR DR: Dr. Vasquez Reyes MD Tissues: C - Gastric mucous membrane Procedures: H Pylori (initial) PHYSICIAN & INSTITUTION [place] [id number] SPECIMEN INFORMATION: Tissue Source: C- Gastric antrum biopsy Clinical Info: Abdominal pain Specimen Number: [id number] CPT code: 06663 METHODOLOGY: Deparaffinized sections of prefer/formalin-fixed tissue or PAP/DQ stained slides are incubated with monoclonal/polyclonal antibodies/oligonucleotide probes. Localization is made via biotin free immunoperoxidase method. Appropriate controls are performed and reacted as expected. Results on target cell population are indicated in the following table: RESULTS: ANTIBODY / CLONE RESULT Block C H Pylori (polyclonal) negative These tests were developed and their performance characteristics determined by [facility]. They may not have been cleared or approved by the U.[place]. Food and Drug Administration. The FDA has determined that such clearance or approval is not necessary. The above immunohistochemical/dualISH markers are ordered and reviewed by the Pathologist. INTERPRETATION: C. Gastric antrum, biopsy: Negative for Helicobacter pylori organisms. 04/11/2024
--- NOTE | 2024-04-10 07:32 | OP.EGD_ITS ---
Patient Name: Teddy Francois Procedure Date: 04/10/2024 7:04 AM Date of : 2000 Age: 24 Procedure: Upper GI endoscopy Indications: Functional Dyspepsia, Esophageal reflux, Failure to respond to medical treatment Providers: Bharath Mccoy DO Medicines: Monitored Anesthesia Care Patient Profile: This is a 24 year old male. Refer to note in patient chart for documentation of history and physical. Patient has symptoms of chronic epigastric abdominal pain and chronic heartburn. Complications: No immediate complications. Procedure: Pre-Anesthesia Assessment: - Prior to the procedure, a History and Physical was performed, and patient medications and allergies were reviewed. The patient is competent. The risks and benefits of the procedure and the sedation options and risks were discussed with the patient. All questions were answered and informed consent was obtained. Patient identification and proposed procedure were verified by the physician in the pre-procedure area. Mental Status Examination: alert and oriented. Airway Examination: normal oropharyngeal airway and neck mobility. Respiratory Examination: clear to auscultation. CV Examination: normal. Prophylactic Antibiotics: The patient does not require prophylactic antibiotics. Prior Anticoagulants: The patient has taken no anticoagulant or antiplatelet agents except for NSAID medication. ASA Grade Assessment: II - A patient with mild systemic disease. After reviewing the risks and benefits, the patient was deemed in satisfactory condition to undergo the procedure. The anesthesia plan was to use monitored anesthesia care (MAC). Immediately prior to administration of medications, the patient was re-assessed for adequacy to receive sedatives. The heart rate, respiratory rate, oxygen saturations, blood pressure, adequacy of pulmonary ventilation, and response to care were monitored throughout the procedure. The physical status of the patient was re-assessed after the procedure. After obtaining informed consent, the endoscope was passed under direct vision. Throughout the procedure, the patient's blood pressure, pulse, and oxygen saturations were monitored continuously. The gastroscope was introduced through the mouth, and advanced to the second part of duodenum. The upper GI endoscopy was accomplished without difficulty. The patient tolerated the procedure well. Scope In: 7:19:02 AM Scope Out: 7:26:18 AM Total Procedure Duration Time 0 hours 7 minutes 16 seconds Findings: The Z-line was irregular and was found 38 cm from the incisors. Biopsies were taken with a cold forceps for histology. Verification of patient identification for the specimen was done. Biopsies were obtained from the proximal and distal esophagus with cold forceps for histology of suspected eosinophilic esophagitis. The CASTANEDA capsule with delivery system was introduced through the mouth and advanced into the esophagus, such that the CASTANEDA pH capsule was positioned 38 cm from the incisors, which was 6 cm proximal to the GE junction. Suction was applied to the well of the CASTANEDA pH capsule to suck in the adjacent mucosa of the esophagus using the external vacuum pump set at a minimum vacuum pressure of 550 mmHg for 30 seconds. The CASTANEDA pH capsule was then deployed by depressing the plunger on top of the handle to advance the locking pin into the mucosa, thereby attaching the capsule to the esophagus. The plunger was then rotated a quarter turn clockwise to release the capsule from the delivery system. The delivery system was then withdrawn. Endoscopy was utilized for probe placement and diagnostic evaluation. Patchy mildly erythematous mucosa without bleeding was found in the gastric antrum. Biopsies were taken with a cold forceps for histology. Verification of patient identification for the specimen was done. Biopsies were taken with a cold forceps for Helicobacter pylori testing. Verification of patient identification for the specimen was done. Patchy mildly erythematous mucosa without active bleeding and with no stigmata of bleeding was found in the duodenal bulb. Biopsies were taken with a cold forceps for histology. Verification of patient identification for the specimen was done. Estimated blood loss was minimal. Impression: - Z-line irregular, 38 cm from the incisors. Biopsied. - Erythematous mucosa in the antrum. Biopsied. - Erythematous duodenopathy. Biopsied. - Biopsies were taken with a cold forceps for evaluation of eosinophilic esophagitis. - The CASTANEDA pH capsule was positioned 38 cm from the incisors, which was 6 cm proximal to the GE junction. Recommendation: - Discharge patient to home. - Resume previous diet. - Continue present medications. - Await pathology results. Procedure Code(s): --- Professional --- 65283, Esophagogastroduodenoscopy, flexible, transoral; with biopsy, single or multiple CPT copyright 2021 [employer]. All rights reserved. The codes documented in this report are preliminary and upon lobby concierge review may be revised to meet current compliance requirements. Bharath Mccoy DO 04/10/2024 7:31:51 AM This report has been signed electronically. Number of Addenda: 0 Note Initiated On: 04/10/2024 7:04 AM
--- NOTE | 2024-04-10 07:32 | OP.CCLET_ITS ---
04/10/2024 Vasquez Reyes [address] [place] [address] Re : Upper GI endoscopy procedure for Teddy Conner Dear Dr. Reyes This procedure was performed on April. My impressions and recommendations are as follows: Impressions : - Z-line irregular, 38 cm from the incisors. Biopsied. - Erythematous mucosa in the antrum. Biopsied. - Erythematous duodenopathy. Biopsied. - Biopsies were taken with a cold forceps for evaluation of eosinophilic esophagitis. - The CASTANEDA pH capsule was positioned 38 cm from the incisors, which was 6 cm proximal to the GE junction. Recommendations : - Discharge patient to home. - Resume previous diet. - Continue present medications. - Await pathology results. My findings are described in the full procedure note, which is enclosed. If I can be of further assistance, please feel free to contact me at . Sincerely, Bharath Mccoy, 04/10/2024 7:31:51 AM This report has been signed electronically.
--- NOTE | 2024-04-10 07:41 | PCM.POST.ANE ---
Anesthesia: Postop Eval I Current Vital Signs Temperature: 99.3 F Pulse Rate: 88 Blood Pressure: 111/74 Respiratory Rate: 16 Pulse Ox: 96 Oxygen Delivery Method: Room Air Assessment Airway patent: Yes Spontaneous unlabored respirations: Yes Mental status: Asleep nausea: No Vomiting: No Anesthesia Complication: No Fluid Hydration Crystalloid volume administer (ml): 400 Total IV fluid infused: 400 Progress Note Anesthesia document: Postop Eval 1 completed: Yes
--- NOTE | 2024-04-10 08:49 | PCM.POSTANE2 ---
Anesthesia Postop Eval I Sum Postop Eval Completion status Anesthesia document: Postop Eval 1 completed: Yes Anesthesia Postop Eval I Summary Anesthesia Postop Eval I Summary: Anesthesia Postop Eval I: Assessment Summary Airway patent Yes 04/10/24 07:42 [email or web address] Spontaneous unlabored Yes 04/10/24 07:42 [email or web address] respirations Mental status Asleep 04/10/24 07:42 [email or web address] nausea No 04/10/24 07:42 [email or web address] Vomiting No 04/10/24 07:42 [email or web address] Anesthesia Postop Eval I: Fluid Summary Crystalloid volume administer 400 04/10/24 07:42 [email or web address] (ml) Colloids volume administered ( ml) Blood Product volume administered (ml) Total IV fluid infused 400 04/10/24 07:42 [email or web address] Anesthesia Postop Eval I: Summary Notes Anesthesia Complication No 04/10/24 07:42 [email or web address] Anesthesia Complication Comment: Post-operative progress note Anesthesia: Postop Eval II Evaluation Mental status: Awake Pain Level: 0 nausea: No Vomiting: No
== END 2024-04-10 08:38 | disposition home or self-care (01) ==
LOC: EN 06:08 → AC 06:10
PROVIDERS: PCP Family Medicine; Referring Provider Family Medicine; Visit Provider Internal Medicine Gastroenterology
PROC: (CPT 43235; principal; 2024-04-10 06:55)
DX: R10.11 Right upper quadrant pain (principal); F41.9 Anxiety disorder, unspecified; Z79.899 Other long term (current) drug therapy; K21.9 Gastro-esophageal reflux disease without esophagitis; K29.70 Gastritis, unspecified, without bleeding; K31.A19 Gastric intestinal metaplasia without dysplasia, unspecified site; K31.89 Other diseases of stomach and duodenum
CPT/HCPCS: 43239; 36415; 88305; 88312; 88342; J7120; J2405

== ENCOUNTER → 2024-04-11 | Outpatient (CLI) | payer OTHER, SELFPAY | END | disposition home or self-care (01) | PROVIDERS: PCP Family Medicine; Referring Provider Internal Medicine Gastroenterology; Visit Provider Internal Medicine Gastroenterology | DX: R10.9 Unspecified abdominal pain (principal) ==

== ENCOUNTER → 2024-04-25 | Outpatient (CLI) | payer OTHER, SELFPAY ==
--- NOTE | 2024-04-25 12:54 | NM_ITS ---
CLINICAL: 24-year-old male with history of chronic nausea and early satiety. SEMI-SOLID PHASE 99m Tc SULFUR COLLOID GASTRIC EMPTYING STUDY COMPARISON: None available FINDINGS: The patient was administered 1.0 mCi of 99m Tc sulfur colloid mixed with oatmeal and consumed per os. Image acquisitions in the anterior-posterior projections were obtained for 60 minutes. There is prompt visualization of the stomach. There is no gastroesophageal reflux identified. First order kinetics are maintained throughout the duration of the acquisitions. The T ? linear fit was extrapolated to be 89.33 minutes, (Normal: 12-56 minutes). NM/Gastric Emptying Study IMPRESSION: 1. ABNORMAL 99m Tc sulfur colloid semi-solid phase (oatmeal) gastric emptying imaging examination. A. There is delayed semi-solid phase gastric emptying compared to normal controls with maintained first order kinetics throughout all components of the examination. (Jolanta et al, J Nucl Med Tech 38: 186, 2010). Electronically Signed: Edvin Diggs DO at 9:22 EDT ,
== END | disposition home or self-care (01) ==
PROVIDERS: PCP Family Medicine; Referring Provider Internal Medicine Gastroenterology; Visit Provider Internal Medicine Gastroenterology
DX: R10.9 Unspecified abdominal pain (principal)
CPT/HCPCS: 78264; A9541

== ENCOUNTER → 2025-02-17 | Outpatient (CLI) | payer OTHER, SELFPAY ==
--- NOTE | 2025-02-17 07:54 | US_ITS ---
PROCEDURE: ABDOMEN LIMITED 02/17/2025 REASON FOR EXAM: ABD PAIN TECHNIQUE: ABDOMEN LIMITED COMPARISON: Prior study dated February 08, 2024. FINDINGS: Liver: Diffusely echogenic suggesting fatty infiltration. Mild hepatomegaly. The liver measures 18.1 cm. Gallbladder: No stones sludge wall thickening or tenderness. Common bile duct: Normal measuring 2.2 mm . Pancreas: Obscured by bowel gas. Kidneys: The right kidney measures 11.5 cm 4.4 cm 4.6 cm. Renal cortex measures 1.2 cm.. US/Abdomen Limited IMPRESSION: Mild hepatomegaly. Fatty infiltration of the liver. Reading Location: [place] [address]
== END | disposition home or self-care (01) ==
PROVIDERS: PCP Family Medicine; Referring Provider Internal Medicine Gastroenterology; Visit Provider Internal Medicine Gastroenterology
DX: R10.9 Unspecified abdominal pain (principal)
CPT/HCPCS: 76705

== ENCOUNTER → 2025-03-06 | Outpatient (CLI) | payer OTHER, SELFPAY ==
--- NOTE | 2025-03-06 08:10 | NM_ITS ---
PROCEDURE: GASTRIC EMPTYING STUDY - 4 HR 03/06/2025 REASON FOR EXAM: DELAYED 1 HOUR GET - ABD PAIN TECHNIQUE: Procedure Code: [id number] Modality: NM Procedure: GASTRIC EMPTYING STUDY - 4 HR The patient ingested a standard meal of cooked egg whites mixed with butter, toasted white bread, and water. Delete tab there was no vomiting postprandially. Anterior and posterior planar images of the upper abdomen were obtained for 1 minute immediately following the meal at 1h, 2h and 4h if more than 10% of the activity persisted within the stomach. Regions of interest were drawn, and a geometric mean was used to calculate a [id number]. RADIOPHARMACEUTICAL: Sulfur colon DOSE 1.2mCi FINDINGS: Percent activity remaining in stomach: 1 hour 72 % (normal 37-90%) 2 hours: 37 % (normal 30-60%) 4 hours: 4 % (normal 0-10%) NM/Gastric Emptying Study - 4 HR IMPRESSION: Normal gastric emptying examination. Reading Location: [facility]
== END | disposition home or self-care (01) ==
PROVIDERS: PCP Family Medicine; Referring Provider Internal Medicine Gastroenterology; Visit Provider Internal Medicine Gastroenterology
DX: K31.84 Gastroparesis (principal); R10.9 Unspecified abdominal pain
CPT/HCPCS: 78264; A9541